=== PATIENT | male | born 1960 | race Caucasian/White ===

== ENCOUNTER 2023-01-26 15:52 | Outpatient (AMB) | payer OTHER, SELFPAY ==
[2023-01-26 15:54] VITALS: BP 108/72; PULSE 81; O2SAT 99; BMI 25.5
--- NOTE | 2023-01-26 15:54 | MHC.PC.OV ---
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 Previous PCP Dr. Walls at [facility], last visit about 1 year ago. Medical history significant nicotine dependence-patient smokes for the past 50 years-he did have low-dose chest CT scan 04/[address]-will order CT scan for next year. Patient also is due for colon cancer screening, will refer. Reports eye and dental exams up-to-date. Would like to hold off on tetanus vaccine. Reports intermittent pains in his both shoulders, left hip, left foot, reports taking ibuprofen with some improvement, would like to hold off on x-rays or PT referral at this time. No shortness of breath or chest pain. [facility] Medical History (Updated 01/26/23 @ 16:54 by EVANGELINA Cee) Meckel diverticulum Surgical History (Updated 01/26/23 @ 16:53 by EVANGELINA Cee) History of colonoscopy H/O fasciotomy H/O: knee surgery H/O adenoidectomy Hx of tonsillectomy History of appendectomy History of cholecystectomy Family History Mother Diabetes Mild dementia Father Esophageal cancer Pneumonitis Social History Housing: House Patient Tobacco Use Status: Current everyday Tobacco user Cigarettes Per Day: 8 service: Yes Current occupational status: employed Cognitive needs: No Hearing needs: No Vision needs: No Questionnaire PHQ-9 Over the last 2 weeks, how often have you been bothered by any of the following problems? 1. Little interest or pleasure in doing things: not at all 2. Feeling down, depressed, or hopeless: not at all 3. Trouble falling or staying asleep, or sleeping too much: not at all 4. Feeling tired or having little energy: not at all 5. Poor appetite or overeating: not at all 6. Feeling bad about yourself - or that you are a failure or have let yourself or your family down: not at all 7. Trouble concentrating on things, such as reading the newspaper or watching television: not at all 8. Moving or speaking so slowly that other people could have noticed. Or the opposite - being so fidgety or restless that you have been moving around a lot more than usual: not at all 9. Thoughts that you would be better off or of hurting yourself in some way: not at all Total score: 0 Depression Screening Interpretation: Negative Depression Screening Done: Yes 23713 - PHQ-9 Billing: Yes Source: Developed by Drs. Cory Gómez, Jessica Putnam, Dieter Alfonso and colleagues, with an educational raya from [employer]. Thrive Questionnaire Date Thrive assessed: 01/26/23 I am a: Patient What is your living situation today?: I have a steady place to live Within the past 12 months, did the food you bought not last and you didn't have the money to get more?: Never true Within the past 12 months, did you worry whether your food would run out before you got money to buy more?: Never true Do you have trouble paying for medicines?: No Do you have trouble getting transportation to medical appointments?: No Do you have trouble paying your heating and electricity bill?: No Do you have trouble taking care of your child, family member or friend?: No Do you have trouble with day-to-day activities such as bathing, preparing meals, shopping, managing finances, etc.?: No Are you currently unemployed and looking for a job?: No Are you interested in more education?: No Currently or been in a relationship where the following occur: no concerns reported AUDIT C Alcohol Use Questionnaire (AUDIT-C) 1. How often do you have a drink containing alcohol?: Never 3. How often do you have six or more drinks on one occasion?: Never Total Score: 0 Score Reviewed/Action Taken: No SABINA-7 AMB Questionnaire SABINA-7 Date SABINA - 7 assessed: 01/26/23 Feeling nervous, anxious, or on edge: 0 = Not at all Not being able to stop or control worryin = Not at all Worrying too much about different things: 0 = Not at all Trouble relaxin = Not at all Being so restless that it is hard to sit still: 0 = Not at all Becoming easily annoyed or irritable: 0 = Not at all Feeling afraid as if something awful might happen: 0 = Not at all Total SABINA-7 score (0-4 normal; 5-9 mild; 10-14 moderate; 15-21 severe): 0 Source: Developed by Drs. Cory Gómez, Jessica Putnam, Dieter Alfonso and colleagues, with an educational raya from [employer]. SABINA-7 Assessment Billing SABINA-7 Assessment Tool: SABINA-7 Assessment 11889 Review of Systems Const Denies body aches, Denies chills, Denies fever(s) and Denies headache(s) Eyes Denies change in vision ENT Denies dizziness, Denies otalgia, Denies headache(s), Denies nasal discharge, Denies sinus pain and Denies sore throat Card Denies chest pain, Denies edema, Denies lightheadedness and Denies dyspnea Resp Denies cough, Denies dyspnea and Denies wheezing GI Denies abdominal pain, Denies constipation, Denies diarrhea, Denies nausea and Denies vomiting Denies dysuria Musc Denies myalgias and Reports arthralgias Neuro Denies dizziness and Denies headache(s) Aller/Immun Denies wheezing Physical exam (Primary Care) Vital Signs: Last Vital Signs Pulse 81 01/26/23 15:54 BP 108/72 01/26/23 15:54 Pulse Ox 99 01/26/23 15:54 Oxygen Delivery Method Room Air 01/26/23 15:54 BMI result Body Mass Index 25.5 Tobacco/Smoking Status: Tobacco use Status Tobacco use date assessed 01/26/23 01/26/23 15:56 Patient Tobacco Use Status Current everyday Tobacco 01/26/23 16:07 PHQ-9: PHQ-9 Score PHQ-9: Total score 0 01/26/23 16:07 Depression Screening Interpretation: Negative Thrive Assessment: Date of Thrive Assessment Date Thrive assessed 01/26/23 01/26/23 15:56 Currently or been in a relationship where the following occur: no concerns reported Const General: cooperative and no acute distress Orientation/consciousness: patient oriented x3 HENMT Head: Yes normocephalic and Yes atraumatic Ears: TM's normal bilaterally Face and sinus: Yes sinuses nontender Mouth: oropharynx normal and moist mucous membranes Throat: Yes posterior oropharynx normal Eyes General: appearance normal, both eyes and all related structures Pupils: Equal, round and reactive pupils present EOM: EOMs intact bilaterally Neck Neck: Yes normal visual inspection, Yes full ROM and Yes no lymphadenopathy Thyroid: Thyroid normal Resp Effort & Inspection: normal respiratory effort and able to speak in complete sentences Auscultation: clear to auscultation bilaterally, no crackles, no rales, no rhonchi and no wheezes Cardio Rate: regular rate Rhythm: regular rhythm Heart sounds: S1 normal heart sound present, S2 normal heart sound present and no murmurs GI Palpation (GI): Soft to palpation, not firm, nontender, no guarding, not rigid and no hepatosplenomegaly Auscultation: normal bowel sounds General: No CVA tenderness Back/Spine/Pelvis Back: No CVA tenderness Skin General skin exam: no rashes or lesions noted Neuro General: patient oriented x3 Cranial nerves: Yes Equal, round and reactive pupils present Gait exam (Neuro): Normal gait present Extrem General: Yes full ROM and No edema Assessment and Plan Assessment & Plan (1) Adult general medical exam: Code(s): Z00.00 - Encounter for general adult medical examination without abnormal findings Plan: Repeat in 1 year (2) Smoker: Code(s): F17.200 - Nicotine dependence, unspecified, uncomplicated Plan: Encouraged smoking cessation Due for low-dose chest CT scan 04/2023 (3) Screening for prostate cancer: Code(s): Z12.5 - Encounter for screening for malignant neoplasm of prostate (4) Screening for colon cancer: Code(s): Z12.11 - Encounter for screening for malignant neoplasm of colon (5) Bilateral shoulder pain: Code(s): M25.511 - Pain in right shoulder; M25.512 - Pain in left shoulder Plan: Patient would like to hold off on x-ray or PT referral Reports taking ibuprofen as needed for pain with some improvement (6) Left hip pain: Code(s): M25.552 - Pain in left hip Plan: Same as above (7) Left foot pain: Code(s): M79.672 - Pain in left foot Plan: Same as above Orders: Orders TSH reflex Free T4 Today Z00.00 - Encounter for general adult medical examination without abnormal findings Lipid Panel Today Z00.00 - Encounter for general adult medical examination without abnormal findings Comprehensive [place]. Panel Fast Today Z00.00 - Encounter for general adult medical examination without abnormal findings Prostate Specific Antigen Today Z12.5 - Encounter for screening for malignant neoplasm of prostate Vitamin D 25-OH Total Today Z00.00 - Encounter for general adult medical examination without abnormal findings Complete Blood Count Auto Diff Today Z00.00 - Encounter for general adult medical examination without abnormal findings Referrals Thoracic Surgery Referral F17.200 - Nicotine dependence, unspecified, uncomplicated Open Access Screening Colonoscopy Referral Z12.11 - Encounter for screening for malignant neoplasm of colon, Z12.12 - Encounter for screening for malignant neoplasm of rectum Coding Level of Care Code New Pt Prev Care 40-64y(22483) Diagnoses Adult general medical exam Z00.00 Smoker F17.200 Screening for prostate cancer Z12.5 Screening for colon cancer Z12.11 Bilateral shoulder pain M25.511; M25.512 Left hip pain M25.552 Left foot pain M79.672 Additional Codes SABINA-7 Assessment Billing - SABINA-7 Assessment Tool: SABINA-7 Assessment 85388 ([id number])
== END 2023-01-26 16:46 | disposition home or self-care (01) ==
PROVIDERS: Visit Provider Nurse Practitioner Family
DX: Z00.00 Encounter for general adult medical examination without abnormal findings (principal); F17.210 Nicotine dependence, cigarettes, uncomplicated; M25.511 Pain in right shoulder; M25.512 Pain in left shoulder; M25.552 Pain in left hip; M79.672 Pain in left foot
CPT/HCPCS: 99386

== ENCOUNTER 2023-02-02 07:19 | Outpatient (REF) | payer OTHER, SELFPAY ==
[2023-02-02 07:28] LABS: MANUAL DIFF FLAG NO
[2023-02-02 08:08] LABS: Basophils Absolute Auto 0.1 X10*3/uL (0.0-0.2); Basophils Percent Auto 0.4 % (0-2); Eosinophils Absolute Auto 0.1 X10*3/uL (0.0-0.4); Eosinophils Percent Auto 1.1 % (0-4); Hematocrit 47.1 % (42.0-52.0); Hemoglobin 15.5 g/dl (14.0-18.0); Imm Gran Abs Auto 0.07 X10*3/uL (0.00-0.03); Imm Gran Pct Auto 0.5 % (0.0-0.4); Lymphocytes Absolute Auto 1.9 X10*3/uL (1.2-4.9); Lymphocytes Percent Auto 14.3 % (20-40); Mean Corpuscular HGB Conc 32.9 g/dl (31.0-36.0); Mean Corpuscular Hemoglobin 29.4 pg (27.0-33.0); Mean Corpuscular Volume 89.2 fL (80.0-98.0); Mean Platelet Volume 10.2 fL (9.4-12.4); Monocytes Absolute Auto 0.7 X10*3/uL (0.1-1.2); Monocytes Percent Auto 5.5 % (2-11); Neutrophils Absolute Auto 10.4 x10*3/uL (2.0-8.3); Neutrophils Percent Auto 78.2 % (45-73); Platelet Count 239 X10*3/uL (160-400); Red Blood Count 5.28 X10*6/uL (4.60-5.80); Red Cell Distribution Width 13.1 % (11.0-16.0); White Blood Count 13.3 X10*3/uL (4.8-10.8)
[2023-02-02 08:55] LABS: Alanine Aminotransferase 11 U/L (0-40); Albumin Level 4.3 g/dL (3.5-5.0); Alkaline Phosphatase 67 U/L (39-117); Anion Gap 14 (12-20); Aspartate Amino Transferase 15 U/L (5-37); Bilirubin Total 0.4 mg/dL (0.0-1.0); Blood Urea Nitrogen 17 mg/dL (9-16); Calcium 9.4 mg/dL (8.4-10.2); Carbon Dioxide 27 mmol/L (22-29); Chloride 105 mmol/L (96-108); Cholesterol 168 mg/dL (<200); Estimated Glomerular Filt Rate 51; Glucose Fasting 88 mg/dL (60-99); HDL Cholesterol 36 mg/dL (>40); LDL Cholesterol Calculated 117 mg/dL (<100); Potassium 4.5 mmol/L (3.3-5.1); Sodium 141 mmol/L (135-145); Total Protein 7.3 g/dL (6.5-8.0); Triglycerides 75 mg/dL (<150)
[2023-02-02 09:01] LABS: TSH reflex Free T4 1.74 uIU/mL (0.32-4.0); Vitamin D 25-OH Total 19.4 ng/mL (>30)
[2023-02-02 09:04] LABS: Prostate Specific Antigen 3.74 ng/mL (<0.05-4.0)
== END 2023-02-02 07:20 | disposition home or self-care (01) ==
LOC: HO.LAB 07:19
PROVIDERS: PCP Nurse Practitioner Family; Visit Provider Nurse Practitioner Family
DX: Z00.00 Encounter for general adult medical examination without abnormal findings (principal); Z12.5 Encounter for screening for malignant neoplasm of prostate
CPT/HCPCS: 36415; 80053; 80061; 82306; 84153; 84443; 85025

== ENCOUNTER 2023-03-02 09:45 | Outpatient (REF) | payer OTHER, SELFPAY ==
[2023-03-02 11:14] LABS: Anion Gap 12 (12-20); Blood Urea Nitrogen 16 mg/dL (9-16); Calcium 9.3 mg/dL (8.4-10.2); Carbon Dioxide 29 mmol/L (22-29); Chloride 105 mmol/L (96-108); Estimated Glomerular Filt Rate 52; Glucose Random 104 mg/dL (60-115); Potassium 4.5 mmol/L (3.3-5.1); Sodium 141 mmol/L (135-145)
== END 2023-03-02 09:46 | disposition home or self-care (01) ==
LOC: HO.LAB 09:45
PROVIDERS: Visit Provider Nurse Practitioner Family
DX: D72.829 Elevated white blood cell count, unspecified (principal); N18.30 Chronic kidney disease, stage 3 unspecified
CPT/HCPCS: 36415; 80048; 85025

== ENCOUNTER 2023-03-08 14:59 | Outpatient (AMB) | payer OTHER, SELFPAY ==
--- NOTE | 2023-03-08 15:01 | AM.OFFVISNUR ---
Intake Intake Visit Reasons: T-Dap Shot Allergies No Known Allergies Allergy (Verified 01/26/23 16:26) Immunizations Boostrix Tdap 2.5 Lf unit-8 mcg-5 Lf/0.5 mL intramuscular syringe Performing Provider: Anil Daniel MD [facility] Administered by: Lena Barrera RN on 03/08/23 15:07 Dose Route Admin Location Dispensed Lot Number Expiration Date NDC Hot Walker 0.5 mL IM Left Deltoid 0.5 mL [id number] 06/22/25 [id number] Transaq VIS Given Date VIS Provided VIS Publication Date 03/08/23 Single Vaccine 20 Eligibility Eligibility Date Funding Source Not [facility] Eligible 03/08/23 Private Coding Assessment & Plan Assessment & Plan Orders: Orders TDaP Immunization Today Z23 - Encounter for immunization
== END 2023-03-08 15:08 | disposition home or self-care (01) ==
PROVIDERS: PCP Nurse Practitioner Family; Visit Provider Nurse Practitioner Family
DX: Z23 Encounter for immunization (principal)
CPT/HCPCS: 90471; 90715

== ENCOUNTER 2023-05-26 09:53 | Outpatient (AMB) | payer OTHER, SELFPAY ==
--- NOTE | 2023-05-26 10:08 | MHC.OFFVIS ---
Intake Intake Visit Reasons: LDCT SD Allergies No Known Allergies Allergy (Verified 01/26/23 16:26) HPI HPI Comments History of Present Illness Details rUiel is a pleasant 62 year old male, current smoker with a 30 PYH. Patient has been smoking since age 13 for 45 years at 1/2 ppd, did smoker 1ppd x 15 years. Denies marijuana use. 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 Admits second hand smoke exposure. Denies known family history of lung cancer. Denies personal history of cancers. Denies recent travel outside the [place]. Denies testing positive for COVID. Admits receiving COVID Vaccine. Denies fever, chills, chest pain, new cough, hemoptysis or unintentional weight loss. Lung Cancer Screening Questionnaire reviewed with patient by provider. Shared Decision Making Completed. Discussed in detail with patient, the risk versus benefit of LDCT screening. Patient in agreement of proceeding with scan. [facility] Medical History (Updated 04/12/23 @ 15:02 by Sherice Camargo NP) Meckel diverticulum Surgical History (Updated 01/26/23 @ 16:53 by EVANGELINA Cee) History of colonoscopy H/O fasciotomy H/O: knee surgery H/O adenoidectomy Hx of tonsillectomy History of appendectomy History of cholecystectomy Family History Mother Diabetes Mild dementia Father Esophageal cancer Pneumonitis Social History (Updated 05/26/23 @ 10:41 by Sherice Camargo NP) Housing: House Patient Tobacco Use Status: Current everyday Tobacco user Cigarettes Per Day: 8 Years Smoked: 45 years, 1ppd x 15yrs, approx 1/2 ppd x 30 yrs service: Yes Current occupational status: employed Cognitive needs: No Hearing needs: No Vision needs: No Assessment & Plan Assessment & Plan (1) Nicotine dependence, cigarettes, uncomplicated: Code(s): F17.210 - Nicotine dependence, cigarettes, uncomplicated Plan Shared decision-making visit completed today in office. This patient meets criteria for LDCT for lung cancer screening purposes and is asymptomatic. Offered smoking cessation. Patient has been scheduled for a low dose chest CT for screening purposes at [facility]. We discussed how the results will be obtained depending on CT findings. RADS 1 and RADS 2 will receive a letter with results and will follow up for annual LDCT. Patient informed they will be contacted at later date to schedule upcoming LDCT scan. RADS 3 and RADS 4 will receive a telephone call, or an office visit after reviewing case at our Lung Cancer Conference to determine when the next LDCT will be scheduled or further interventions that may be needed. Discussed importance of screening program and compliance with yearly LDCT scan as scheduled. Risks, benefits, and alternatives were discussed in detail and patient agrees to proceed. Risks discussed include but are not limited to: radiation exposure and possibility of additional intervention for benign disease. Benefits include detection of lung cancer at an early stage. A copy of today's visit and LDCT results will be sent to patient's PCP. Incidental findings on LDCT are PCP's responsibility. If there are incidental findings, our office will ensure that PCP office is aware of these findings. All questions were answered and patient is in agreement of plan. Coding Level of Care Code Lung Cancer Screening G0296 Diagnoses Nicotine dependence, cigarettes, uncomplicated F17.210
== END 2023-05-26 10:13 | disposition home or self-care (01) ==
PROVIDERS: PCP Nurse Practitioner Family; Referring Provider Nurse Practitioner Family; Visit Provider Nurse Practitioner Family
DX: F17.210 Nicotine dependence, cigarettes, uncomplicated (principal)
CPT/HCPCS: G0296

== ENCOUNTER 2023-05-26 10:15 | Outpatient (REF) | payer OTHER, SELFPAY ==
--- NOTE | ~2023-05-26 | CT_ITS ---
EXAMINATION: CT CHEST SCREENING CLINICAL INFORMATION: Nicotine dependence. Current smoker. One pack per day with 40 pack year history. COMPARISON: None available. TECHNIQUE: Multidetector volumetric CT imaging of the chest is performed without contrast using low dose technique. Additional 2D coronal and sagittal reformatted images and axial 3D maximum intensity projection (MIP) images are generated on the CT workstation. This CT examination was performed using dose optimization techniques as appropriate, variously including the following: *Automated exposure control *Adjustment of mA and/or kV according to patient size (this includes techniques or standardized protocols for targeted exams where dose is matched to indication/reason for exam; i.e. extremities or head) *Use of iterative reconstruction technique DLP: 50 mGy-cm FINDINGS: PULMONARY NODULES: There is a large ground-glass opacity seen in the right lower lobe abutting the heart border measuring 2.7 x 2.3 x 2.1 cm (5:362). An additional more ill-defined area of ground-glass opacity is seen at the left lung base (5:387). There is a punctate calcified granuloma in the right upper lobe (5:174), as well as in the right lower lobe (5:316), and left lower lobe (5:333). LUNGS: Mild emphysematous changes are seen. Mild peribronchial thickening is noted. Scarring/atelectasis is present in the right middle lobe and lingula. MEDIASTINUM: The mediastinum is normal. CORONARY ARTERY CALCIFICATION: Mild. PLEURA: There is no pleural effusion. No pleural mass or thickening. AXILLA: No lymphadenopathy. UPPER ABDOMEN: Cholecystectomy. OSSEOUS STRUCTURES: Unremarkable. CT/CT lung screening IMPRESSION: Small benign-appearing pulmonary nodules. Single 2.7 cm ground-glass opacity right lower lobe. ASSESSMENT: Lung-RADS category 2: Benign RECOMMENDATION: Routine annual low-dose CT screening in 12 months.
== END 2023-05-26 10:16 | disposition home or self-care (01) ==
LOC: HO.CT 10:15
PROVIDERS: PCP Nurse Practitioner Family; Visit Provider Nurse Practitioner Family
DX: Z12.2 Encounter for screening for malignant neoplasm of respiratory organs (principal); F17.210 Nicotine dependence, cigarettes, uncomplicated
CPT/HCPCS: 71271; G0296

== ENCOUNTER 2023-06-14 07:20 | Outpatient (REF) | payer OTHER, SELFPAY ==
[2023-06-15 12:48] LABS: Immunoglobulin A 136 mg/dL (70-320)
[2023-06-15 13:38] LABS: Gliadin Deamidated IgA Ab 2.9 U/mL; Gliadin Deamidated IgG Ab <1.0 U/mL; Transglutaminase Ab IgG <1.0 U/mL; Transglutaminase IgA <1.0 U/mL
[2023-06-17 12:59] LABS: Endomysial IgA Antibody Negative (Negative)
== END 2023-06-14 07:21 | disposition home or self-care (01) ==
LOC: HO.LAB 07:20
PROVIDERS: Visit Provider Internal Medicine
DX: R19.7 Diarrhea, unspecified (principal)
CPT/HCPCS: 36415; 82784; 86231; 86258; 86364

== ENCOUNTER 2023-09-08 07:43 | Day surgery (SDC) | payer OTHER, SELFPAY ==
[2023-09-08 08:30] VITALS: BP 130/92; PULSE 79; RESP 18; TEMP 36.1; O2SAT 96; BMI 25.8
--- NOTE | 2023-09-08 08:37 | P.CONAN_ITS ---
HPI - Anesthesia Eval Consult details Narrative: 62 yo male patient for Colonoscopy PMFSH Active Problems Active Problems: All Active Problems (Updated 09/08/23 @ 08:31 by Anika Casey MD) Nicotine dependence, cigarettes, uncomplicated (Acute) CKD (chronic kidney disease) stage 3, GFR 30-59 ml/min (Acute). Last labs 02/2023 wnl Elevated WBC count (Acute) Low vitamin D level (Acute) Left foot pain (Acute) Left hip pain (Acute) Bilateral shoulder pain (Acute) Screening for colon cancer (Acute) Screening for prostate cancer (Acute) Smoker (Acute). Last cigarette a few hours ago Adult general medical exam (Acute) Past Medical History Medical History Meckel diverticulum Family History Family History Mother Diabetes Mild dementia Father Esophageal cancer Pneumonitis Family history of problems with anesthesia: No Surgical History Surgical History (Updated 01/26/23 @ 16:53 by EVANGELINA Cee) History of colonoscopy H/O fasciotomy H/O: knee surgery H/O adenoidectomy Hx of tonsillectomy History of appendectomy History of cholecystectomy History of Problems with Anesthesia: No Social History Social History (Updated 05/26/23 @ 10:41 by Sherice Camargo NP) Housing: House Patient Tobacco Use Status: Current everyday Tobacco user Tobacco use type: Cigarette Cigarette Packs Per Day: 0.5 Cigarettes Per Day: 10.0 Years Smoked: 46 years, 1ppd x 15yrs, approx 1/2 ppd x 30 yrs Date Education Initiated: 09/08/23 Use of substances other than those prescribed or required for medical reasons: No Are you DNR?: No Advance Directives: No Advance Directives Information Provided: Yes service: Yes Current occupational status: employed Cognitive needs: No Hearing needs: No Vision needs: No Meds Allergies Allergy/AdvReac Type Severity Reaction Status Date / Time No Known Allergies Allergy Verified 09/08/23 08:28 Active Medications: Current Medications Sodium Biphosphate/Sodium Phosphate (Sodium Phosphate,[place]-Dibasic 133 Ml Enema) 133 ml UT ONCE PRN PRN Reason: Poor Colonoscopy Prep Results Exam Height,Weight and Vital Signs: Height 5 ft 10 in Weight 81.647 kg Last Vital Signs Temp 97.0 F 09/08/23 08:30 Pulse 79 09/08/23 08:30 Resp 18 09/08/23 08:30 BP 130/92 H 09/08/23 08:30 Pulse Ox 96 09/08/23 08:30 O2 Del Method Room Air 09/08/23 08:30 Airway Mallampati Class: II TM Dist: >3cm Neck ROM: Full Partial: Upper Loose/Missing/Broken Teeth: Yes (Denies broken or loose teeth) Heart: RRR Lungs: CTAB Assessment and Plan Assessment Anesthesia Assessment: Anesthesia Plan Discussed and Chart Reviewed Final Anesthetic Review Family History of Problems with Anesthesia: No History of Problems with Anesthesia: No NPO: Yes ASA Class: II Final Preanesthetic Review: No Changes in Pt Med Stat, Meds/Allgs Chart Reviewed, Consent Obtained/Reviewed and Anes Risks/Benef Reviewed Patient Risk: Intermediate Procedure Risk: Low Assessment/Block/Sedation in SS: Assess/Block/Sedation-SS Anesthetic Plan Anesthetic Plan: TIVA Disposition: Standard PACU
[2023-09-08] MEDS: Lactated Ringers 1,000 ML 100 ML IVCONT (09:17)
--- NOTE | 2023-09-08 09:48 | PC.NURSE ---
24hr update documented on paper.
[2023-09-08 10:38] VITALS: BP 119/64; PULSE 67; RESP 16; TEMP 36.5; O2SAT 97
--- NOTE | 2023-09-08 10:39 | PM.OP ---
Brief Operative Note Date of Service: 09/08/23 Pre-op diagnosis: Screening, Diarrhea Post-op diagnosis: other (Colon polyps) Procedure: Colonoscopy to the cecum and TI with cold snare polypectomy x 2, and biopsies Surgeon: Cory Chen MD Anesthesia: MAC Was an Red Mud Thickener Operator used for this Procedure?: No Estimated blood loss (mL): 2.0 Pathology: other (A. Ascending colon B. Polyp on ICV C. Transverse colon polyp D. Descending colon) Condition: stable Disposition: PACU
[2023-09-08 10:43] VITALS: BP 98/51; PULSE 59; RESP 16; O2SAT 97
[2023-09-08 10:48] VITALS: BP 105/55; PULSE 59; RESP 16; O2SAT 97
[2023-09-08 10:53] VITALS: BP 99/61; PULSE 61; RESP 16; TEMP 36.2; O2SAT 98
[2023-09-08 10:59] VITALS: BP 122/77; PULSE 58; RESP 16; TEMP 36.2; O2SAT 98
--- NOTE | 2023-09-08 12:16 | OP_ITS ---
DATE OF SERVICE: 09/08/2023 SURGEON: Cory Chen MD INDICATIONS: The patient presents for evaluation of colorectal cancer screening and intermittent diarrhea. Full consent has been obtained from him for this, including risks of bleeding and perforation. PREOPERATIVE DIAGNOSIS: POSTOPERATIVE DIAGNOSIS: PROCEDURE PERFORMED: Colonoscopy to the cecum and terminal ileum with cold snare polypectomy x2, and biopsies. ESTIMATED BLOOD LOSS: COMPLICATIONS: ANESTHESIA: Monitored anesthesia care. ASSISTANTS: SPECIMENS: PREOPERATIVE DIAGNOSES: Colorectal cancer screening and intermittent diarrhea. POSTOPERATIVE DIAGNOSES: Colorectal cancer screening, intermittent diarrhea, colon polyps, rule out microscopic colitis, sigmoid diverticulosis, and internal hemorrhoids. DESCRIPTION OF PROCEDURE: The patient was placed in the left lateral decubitus position. The digital rectal exam revealed no abnormalities. The Olympus video pediatric colonoscope was then entered into the rectum and advanced easily to the cecum. Once in the cecum, I did identify normal-appearing cecal pouch. The terminal ileum was cannulated and appeared normal. The scope was withdrawn back in the colon. The entire cecum including the appendiceal orifice appeared normal. On the colonic side of the ileocecal valve, was an approximately 6 mm polyp, which was removed by cold snare polypectomy and recovered by suction. The polypectomy site appeared clean, without any sign of residual polyp nor bleeding. The scope was slowly withdrawn assessing all mucosal surfaces carefully. Preparation was excellent. In the transverse colon, was an approximately 6 mm polyp, which was removed by cold snare polypectomy and recovered by suction. The polypectomy site appeared clean, without any sign of residual polyp nor bleeding. I did not visualize any other polyps, colitis, nor angiodysplasias. Random biopsies were obtained in the ascending and descending colon. There was a mild amount of sigmoid diverticulosis. In the rectum, scope was retroflexed, visualizing internal hemorrhoids, but no other pathology. The rectal mucosa appeared normal. The scope was straightened and withdrawn from the patient. He tolerated the procedure well and was returned to the recovery area in stable condition. IMPRESSION: 1. Colon polyps. 2. Rule out microscopic colitis. 3. Diverticulosis. 4. Internal hemorrhoids. PLAN: The results of the pathology will be checked. I would recommend a repeat colonoscopy in 5 years if these are tubular adenomas. He was advised not to use any aspirin and NSAIDs for 1 week. Laboratories for celiac disease were negative. He will see me on a p.r.n. basis, but was advised to call if his episodes of diarrhea become more frequent. MD CINDY Hsu/TRACE / [phone]
== END 2023-09-08 12:25 | disposition home or self-care (01) ==
PROVIDERS: PCP Nurse Practitioner Family; Visit Provider Internal Medicine
PROC: 0DJD8ZZ Inspection of Lower Intestinal Tract, Via Natural or Artificial Opening Endoscopic (ICD-10-PCS; CPT 45378; principal; 2023-09-08 09:30)
DX: Z12.11 Encounter for screening for malignant neoplasm of colon (principal); D12.0 Benign neoplasm of cecum; D12.3 Benign neoplasm of transverse colon; K57.30 Diverticulosis of large intestine without perforation or abscess without bleeding; K64.8 Other hemorrhoids; N18.30 Chronic kidney disease, stage 3 unspecified; F17.210 Nicotine dependence, cigarettes, uncomplicated
CPT/HCPCS: 45385; 45380; 88305; J2704

== ENCOUNTER 2024-01-30 15:04 | Outpatient (AMB) | payer OTHER, SELFPAY ==
[2024-01-30 15:05] VITALS: BP 124/82; PULSE 81; O2SAT 99; BMI 27.0
--- NOTE | 2024-01-30 15:05 | A.OFFPC_ITS ---
Vital Signs 01/30/24 15:05 Height 5 ft 10 in Weight 188 lb BMI 27.0 BP 124/82 Blood Pressure Location Lt brachial Position Sitting Pulse 81 Pulse Source Pulse Oximeter Pulse Oximetry (%) 99 Oxygen Delivery Method Room Air Intake Visit Reasons: ANNUAL Product Support Technician Required: No Accompanied by: Self / Same As Patient Allergies No Known Allergies Allergy (Verified 01/30/24 15:16) Medication List - Last Reconciled 01/30/24 by Houston Sexton MD cholecalciferol (vitamin D3) 50 mcg PO DAILY Tobacco use date assessed: 01/30/24 Dental Screening Dental Screen Date: 01/30/24 Did you have a dental visit in the last 12 months?: Yes Did you have a dental problem in the last 6 months where you did not have access to dental care?: No Was dental information given to patient?: Patient has dentist HPI ANNUAL HPI Details Patient comes in today for his annual physical examination - he is transferring over from Selene Alvarado, who is no longer with the practice Patient states that he feels okay Has his usual joint aches and pains, particularly involving both shoulders, left hip and left foot - states that he gets them on and off Reports taking Ibuprofen as needed with some improvement of his symptoms He has reportedly declined offer to send him for imaging studies and referral to physical therapy in the past He denies any headaches or dizziness Denies any chest pains, no SOB No nausea/vomiting, no abdominal pain No change in bowel habits noted He denies any acute urinary symptoms He had his repeat colonoscopy done with Dr. Chen back on 09/08/2023 - he had a couple of polyps removed that came out as tubular adenomas and he has been recommended to get repeat colonoscopy done in 5 years (2028) [facility] Medical History (Updated 01/30/24 @ 18:54 by Houston Sexton MD) Overweight (BMI 25.0-29.9) Chronic kidney disease, stage III (moderate) Vitamin D deficiency Meckel diverticulum Surgical History History of colonoscopy H/O fasciotomy H/O: knee surgery H/O adenoidectomy Hx of tonsillectomy History of appendectomy History of cholecystectomy Family History Mother Diabetes Mild dementia Father Esophageal cancer Pneumonitis Social History Housing: House Patient Tobacco Use Status: Current everyday Tobacco user Tobacco use type: Cigarette Cigarette Packs Per Day: 0.5 Cigarettes Per Day: 10.0 Years Smoked: 45 years, 1ppd x 15yrs, approx 1/2 ppd x 30 yrs service: Yes Current occupational status: employed Cognitive needs: No Hearing needs: No Vision needs: No Questionnaire PHQ-9 Over the last 2 weeks, how often have you been bothered by any of the following problems? 1. Little interest or pleasure in doing things: not at all 2. Feeling down, depressed, or hopeless: not at all 3. Trouble falling or staying asleep, or sleeping too much: not at all 4. Feeling tired or having little energy: not at all 5. Poor appetite or overeating: not at all 6. Feeling bad about yourself - or that you are a failure or have let yourself or your family down: not at all 7. Trouble concentrating on things, such as reading the newspaper or watching television: not at all 8. Moving or speaking so slowly that other people could have noticed. Or the opposite - being so fidgety or restless that you have been moving around a lot more than usual: not at all 9. Thoughts that you would be better off or of hurting yourself in some way: not at all Total score: 0 Depression Screening Interpretation: Negative Depression Screening Done: Yes 82977 - PHQ-9 Billing: Yes Source: Developed by Drs. Cory Gómez, Jessica Putnam, Dieter Alfonso and colleagues, with an educational raya from [employer]. Thrive Questionnaire Date Thrive assessed: 01/30/24 I am a: Patient What is your living situation today?: I have a steady place to live Within the past 12 months, did the food you bought not last and you didn't have the money to get more?: Never true Within the past 12 months, did you worry whether your food would run out before you got money to buy more?: Never true Do you have trouble paying for medicines?: No Do you have trouble getting transportation to medical appointments?: No Do you have trouble paying your heating and electricity bill?: No Do you have trouble taking care of your child, family member or friend?: No Do you have trouble with day-to-day activities such as bathing, preparing meals, shopping, managing finances, etc.?: No Are you currently unemployed and looking for a job?: No Are you interested in more education?: No Please select the resources that you would like help with: None Currently or been in a relationship where the following occur: No concerns reported THRIVE Score: 0 AUDIT C Alcohol Use Questionnaire (AUDIT-C) 1. How often do you have a drink containing alcohol?: Never Total Score: 0 Score Reviewed/Action Taken: Yes SABINA-7 AMB Questionnaire SABINA-7 Date SABINA - 7 assessed: 01/30/24 Feeling nervous, anxious, or on edge: 0 = Not at all Not being able to stop or control worryin = Not at all Worrying too much about different things: 0 = Not at all Trouble relaxin = Not at all Being so restless that it is hard to sit still: 0 = Not at all Becoming easily annoyed or irritable: 0 = Not at all Feeling afraid as if something awful might happen: 0 = Not at all Total SABINA-7 score (0-4 normal; 5-9 mild; 10-14 moderate; 15-21 severe): 0 Source: Developed by Drs. Cory Gómez, Jessica Putnam, Dieter Alfonso and colleagues, with an educational raya from [employer]. Review of Systems Const Denies chills, Denies fatigue, Denies fever(s), Denies headache(s), Denies malaise and Denies weakness Eyes Denies blurry vision, Denies change in vision, Denies irritation and Denies itchy eyes ENT Denies dysphagia, Denies dizziness, Denies otalgia, Denies headache(s), Denies nasal congestion, Denies neck pain, Denies odynophagia and Denies sore throat Card Denies chest pain, Denies rapid heart rate, Denies irregular heart rhythm, Denies palpitations and Denies dyspnea Resp Denies chest congestion, Denies cough, Denies dyspnea and Denies wheezing GI Denies abdominal pain, Denies bloating, Denies constipation, Denies dysphagia, Denies heartburn, Denies diarrhea, Denies nausea, Denies odynophagia and Denies vomiting Denies hematuria, Denies difficulty urinating, Denies dysuria, Denies urinary frequency and Denies urinary urgency Musc Denies back pain, Reports arthralgias (on and off, in the left hip and in both shoulders), Denies joint swelling, Denies muscle weakness and Denies neck pain Skin/Breast Denies lesions, Denies rash and Denies unusual bruising Neuro Denies dizziness, Denies headache(s), Denies paresthesias and Denies weakness Endo Denies fatigue and Denies palpitations Aller/Immun Denies itchy eyes and Denies wheezing Physical exam (Primary Care) Vital Signs: Last Vital Signs Pulse 81 01/30/24 15:05 BP 124/82 01/30/24 15:05 Pulse Ox 99 01/30/24 15:05 Oxygen Delivery Method Room Air 01/30/24 15:05 BMI result Body Mass Index 27.0 Tobacco/Smoking Status: Tobacco use Status Tobacco use date assessed 01/30/24 01/30/24 15:11 Patient Tobacco Use Status Current everyday Tobacco 01/30/24 15:11 Tobacco use type Cigarette 01/30/24 15:11 PHQ-9: PHQ-9 Score PHQ-9: Total score 0 01/30/24 15:19 Depression Screening Interpretation: Negative Thrive Assessment: Date of Thrive Assessment Date Thrive assessed 01/30/24 01/30/24 15:11 Currently or been in a relationship where the following occur: No concerns reported Const General: no acute distress, alert and awake Orientation/consciousness: patient oriented x3 HENMT Head: Yes normocephalic and Yes atraumatic Ears: external ears normal, TM's normal bilaterally and EAC's normal General nose exam: No nasal discharge present Face and sinus: Yes normal facial exam and Yes sinuses nontender Teeth and gingiva: dentition normal Throat: Yes posterior oropharynx normal and Yes tonsils normal (no TP congestion) Eyes Eyelids: Yes eyelids normal Conjunctivae: conjunctivae normal Pupils: Equal, round and reactive pupils present EOM: EOMs intact bilaterally Neck Neck: Yes no lymphadenopathy and Yes supple Thyroid: Thyroid normal Resp Auscultation: clear to auscultation bilaterally, no rales and no wheezes Cardio Rate: regular rate Rhythm: regular rhythm Heart sounds: no murmurs GI Palpation (GI): Soft to palpation, nontender and No hepatosplenomegaly present Auscultation: normal bowel sounds General: Yes no CVA tenderness Back/Spine/Pelvis Back: no CVA tenderness Thoracic/Lumbar Spine: thoracic and lumbar spine normal to inspection Skin Lesions: no lesions Rashes: no rashes Neuro General: patient oriented x3, moves all extremities, no focal motor deficits and CN's II-XI intact bilaterally Cranial nerves: Yes Equal, round and reactive pupils present Cognition (Neuro): normal cognition Gait exam (Neuro): Normal gait present Extrem General: Yes no clubbing, cyanosis or edema Coding Level of Care Code Est Pt Prev Care 40-64y(41971) Diagnoses Annual physical exam Z00.00 Vitamin D deficiency E55.9 Stage 3a chronic kidney disease N18.31 Chronic kidney disease stage 3 subtype: stage 3a (GFR 45-59) Elevated PSA R97.20 Left hip pain M25.552 Bilateral shoulder pain, unspecified chronicity M25.511; M25.512 Chronicity: unspecified Ex-smoker Z87.891 Overweight (BMI 25.0-29.9) E66.3 Additional Codes PHQ-9 - 29852 - PHQ-9 Billing: Yes ([id number]) Assessment & Plan Assessment & Plan (1) Annual physical exam: Code(s): Z00.00 - Encounter for general adult medical examination without abnormal findings Category: Medical Plan: Check labs He is up-to-date with his colon cancer screening - just had his colonoscopy done in August 2023 and will need repeat colonoscopy in 5 years (2028) (2) Vitamin D deficiency: Code(s): E55.9 - Vitamin D deficiency, unspecified Category: Medical Plan: Continue Vitamin D3 2000 units QD Will recheck his Vitamin D level for follow up (3) Chronic kidney disease, stage III (moderate): Code(s): N18.30 - Chronic kidney disease, stage 3 unspecified Category: Medical Qualifiers: Chronic kidney disease stage 3 subtype: stage 3a (GFR 45-59) Qualified Code(s): N18.31 - Chronic kidney disease, stage 3a Plan: His previous labs have demonstrated a slightly elevated serum creatinine level and slightly diminished GFR - his recent numbers were consistent with what one would normally see in an individual with stage 3a CKD He denies taking any Ibuprofen or NSAIDs for his joint pains - states that he is not taking any meds at all other than his Vitamin D supplement Will have him recheck his labs and renal function for follow up and if his numbers are similar or have progressed further from before, will then consider sending him for renal US for further evaluation He will likely also need to see nephrology for further evaluation, depending on how his numbers come out on his labs (4) Elevated PSA: Code(s): R97.20 - Elevated prostate specific antigen [PSA] Category: Medical Plan: His PSA level was at 3.74 ng/ml when last checked a year ago - advised that although this is technically still within the normal limits, it is higher than what we normally see and especially in someone who has no significant urologic symptoms, will need close monitoring Will have him recheck his PSA for follow up and if his numbers have gone up further, he will need to see urology for further evaluation (5) Left hip pain: Code(s): M25.552 - Pain in left hip Category: Medical Plan: This is likely due to either bursitis or arthritis of the hip joint Patient has declined going for imaging studies and referral to physical therapy in the past We have advised him that he can call for x-ray orders and referral to PT at any time when he feels he wants to get this finally checked out further or if his symptoms are progressing (6) Bilateral shoulder pain: Code(s): M25.511 - Pain in right shoulder; M25.512 - Pain in left shoulder Category: Medical Qualifiers: Chronicity: unspecified Qualified Code(s): M25.511 - Pain in right shoulder; M25.512 - Pain in left shoulder Plan: Reports that this has been occurring on and off for a while now Patient has also declined going for imaging studies and referral to physical therapy in the past and we have advised him that he can call for x-ray orders and/or referral to PT at any time if he feels that his symptoms are progressing (7) Ex-smoker: Code(s): Z87.891 - Personal history of nicotine dependence Category: Social Hx Plan: Patient states that he finally quit smoking last month (December 2023) He did have low-dose chest CT done last year on 04/2022, that came out negative (8) Overweight (BMI 25.0-29.9): Code(s): E66.3 - Overweight Category: Medical Plan: Reinforced diet/exercise as tolerated/lose weight Plan To return in 1 year for his next annual physical examination Orders: Orders TSH reflex Free T4 Today E78.00 - Pure hypercholesterolemia, unspecified, Z00.00 - Encounter for general adult medical examination without abnormal findings Complete Blood Count Auto Diff Today D64.9 - Anemia, unspecified, Z00.00 - Encounter for general adult medical examination without abnormal findings Comprehensive Parrott. Panel Fast Today E78.00 - Pure hypercholesterolemia, unspecified, Z00.00 - Encounter for general adult medical examination without abnormal findings Lipid Panel Today E78.00 - Pure hypercholesterolemia, unspecified, Z00.00 - Encounter for general adult medical examination without abnormal findings UA CC w/rflx Micro + Cult Today R30.0 - Dysuria, Z00.00 - Encounter for general adult medical examination without abnormal findings Prostate Specific Antigen Today N40.0 - Benign prostatic hyperplasia without lower urinary tract symptoms, Z00.00 - Encounter for general adult medical examination without abnormal findings Vitamin D 25-OH Total Today E55.9 - Vitamin D deficiency, unspecified, Z00.00 - Encounter for general adult medical examination without abnormal findings Vitamin B12 and Folate Today E53.8 - Deficiency of other specified B group vi tamins, Z00.00 - Encounter for general adult medical examination without abnormal findings
== END 2024-01-30 16:06 | disposition home or self-care (01) ==
PROVIDERS: PCP Nurse Practitioner Family; Visit Provider Internal Medicine
DX: Z00.00 Encounter for general adult medical examination without abnormal findings (principal); E55.9 Vitamin D deficiency, unspecified; N18.31 Chronic kidney disease, stage 3a; R97.20 Elevated prostate specific antigen [PSA]; M25.552 Pain in left hip; M25.511 Pain in right shoulder; M25.512 Pain in left shoulder; Z87.891 Personal history of nicotine dependence; E66.3 Overweight

== ENCOUNTER → 2024-01-30 15:04 | Outpatient (BNVA) | payer OTHER, SELFPAY | PROVIDERS: PCP Nurse Practitioner Family; Visit Provider Internal Medicine | DX: Z00.00 Encounter for general adult medical examination without abnormal findings (principal); E55.9 Vitamin D deficiency, unspecified; N18.31 Chronic kidney disease, stage 3a; R97.20 Elevated prostate specific antigen [PSA]; M25.552 Pain in left hip; M25.511 Pain in right shoulder; M25.512 Pain in left shoulder; E66.3 Overweight; Z79.899 Other long term (current) drug therapy; Z87.891 Personal history of nicotine dependence | CPT/HCPCS: 96127 ==

== ENCOUNTER 2024-02-05 06:18 | Outpatient (REF) | payer OTHER, SELFPAY ==
[2024-02-05 06:28] LABS: MANUAL DIFF FLAG NO
[2024-02-05 07:15] LABS: Basophils Percent Auto 0.5 % (0-2); Eosinophils Absolute Auto 0.2 X10*3/uL (0.0-0.4); Eosinophils Percent Auto 2.5 % (0-4); Hematocrit 43.6 % (42.0-52.0); Hemoglobin 14.7 g/dl (14.0-18.0); Imm Gran Abs Auto 0.01 X10*3/uL (0.00-0.03); Imm Gran Pct Auto 0.1 % (0.0-0.4); Lymphocytes Absolute Auto 1.9 X10*3/uL (1.2-4.9); Mean Corpuscular HGB Conc 33.7 g/dl (31.0-36.0); Mean Corpuscular Hemoglobin 29.6 pg (27.0-33.0); Mean Corpuscular Volume 87.9 fL (80.0-98.0); Mean Platelet Volume 10.1 fL (9.4-12.4); Monocytes Absolute Auto 0.6 X10*3/uL (0.1-1.2); Monocytes Percent Auto 7.4 % (2-11); Neutrophils Absolute Auto 4.8 x10*3/uL (2.0-8.3); Neutrophils Percent Auto 64.5 % (45-73); Platelet Count 200 X10*3/uL (160-400); Red Blood Count 4.96 X10*6/uL (4.60-5.80); Red Cell Distribution Width 12.6 % (11.0-16.0); White Blood Count 7.5 X10*3/uL (4.8-10.8)
[2024-02-05 07:45] LABS: Alanine Aminotransferase 18 U/L (0-40); Albumin Level 4.1 g/dL (3.5-5.0); Alkaline Phosphatase 48 U/L (39-117); Anion Gap 11 (12-20); Aspartate Amino Transferase 25 U/L (5-37); Bilirubin Total 0.6 mg/dL (0.0-1.0); Blood Urea Nitrogen 23 mg/dL (9-16); Calcium 9.6 mg/dL (8.4-10.2); Carbon Dioxide 27 mmol/L (22-29); Chloride 107 mmol/L (96-108); Cholesterol 157 mg/dL (<200); Estimated Glomerular Filt Rate 49; Glucose Fasting 82 mg/dL (60-99); HDL Cholesterol 41 mg/dL (>40); LDL Cholesterol Calculated 98 mg/dL (<100); Potassium 4.1 mmol/L (3.3-5.1); Sodium 141 mmol/L (135-145); Total Protein 6.7 g/dL (6.5-8.0); Triglycerides 92 mg/dL (<150)
[2024-02-05 08:01] LABS: TSH reflex Free T4 2.28 uIU/mL (0.32-4.0); Vitamin D 25-OH Total 26.8 ng/mL (>30)
[2024-02-05 08:06] LABS: Appearance Urine Clear; Color Urine Yellow; Glucose Urine UA Negative (Negative); Leukocyte Esterase Urine Negative (Negative); Nitrite Urine Negative (Negative); PH 5.5 (5.0-9.0); UMIC TRIGGER UACC YES; Urine Blood Large (3+) (Negative); Urine Ketones Negative (Negative); Urine Protein 30 (1+) mg/dL (Neg-Trace)
[2024-02-05 08:11] LABS: Bacteria Urine None Seen (None Seen); Hyaline Casts Urine 0-2 /LPF (0-2); Squamous Epithelial Cell Urine 0-2 /HPF (0-2); WBC Urine 0-5 /HPF (0-5)
[2024-02-05 08:13] LABS: Folate 8.6 ng/mL (> or = 4.0); Prostate Specific Antigen 3.56 ng/mL (<0.05-4.0); Vitamin B12 413 pg/mL (200-900)
== END 2024-02-05 06:19 | disposition home or self-care (01) ==
LOC: HO.LAB 06:18
PROVIDERS: PCP Internal Medicine; Visit Provider Internal Medicine
DX: Z00.00 Encounter for general adult medical examination without abnormal findings (principal); Z12.5 Encounter for screening for malignant neoplasm of prostate; E78.00 Pure hypercholesterolemia, unspecified; E55.9 Vitamin D deficiency, unspecified; N40.0 Benign prostatic hyperplasia without lower urinary tract symptoms; E53.8 Deficiency of other specified B group vitamins; D64.9 Anemia, unspecified
CPT/HCPCS: 36415; 80053; 80061; 81001; 81003; 82306; 82607; 82746; 84153; 84443; 85025

== ENCOUNTER 2024-02-29 07:38 | Outpatient (REF) | payer OTHER, SELFPAY ==
--- NOTE | ~2024-02-29 | XR_ITS ---
CLINICAL HISTORY: M25.552 - Pain in left hip 3 view, pelvis and left hip Comparison: None Findings: The bones are intact. Mild degenerative changes with joint space narrowing at the femoral-acetabular joints bilaterally. The soft tissues are unremarkable. IMPRESSION: No acute findings. Mild degenerative changes. This document has been electronically signed by: Dereck Edouard MD on 02/29/2024 11:44:02
--- NOTE | ~2024-02-29 | XR_ITS ---
CLINICAL HISTORY: M25.512 - Pain in left shoulder 4 view left shoulder Comparison: None Findings: No fractures or dislocations. No significant arthritic change. No erosions. No radiopaque foreign body. IMPRESSION: 1. No acute findings This document has been electronically signed by: Dereck Edouard MD on 02/29/2024 11:40:41
--- NOTE | ~2024-02-29 | XR_ITS ---
CLINICAL HISTORY: M25.511 - Pain in right shoulder 4 view right shoulder Comparison: None Findings: Bones intact. No dislocations. Mild to moderate joint space narrowing of the right glenohumeral and acromioclavicular joints. No erosions. No radiopaque foreign body. IMPRESSION: 1. No acute findings 2. [id number] degenerative change of the glenohumeral joint. This document has been electronically signed by: Dereck Edouard MD on 02/29/2024 11:41:50
== END 2024-02-29 07:39 | disposition home or self-care (01) ==
LOC: HO.XRAY 07:38
PROVIDERS: PCP Internal Medicine; Visit Provider Internal Medicine
DX: M25.552 Pain in left hip (principal); M25.511 Pain in right shoulder
CPT/HCPCS: 73030; 73502

== ENCOUNTER → 2024-02-29 07:42 | Outpatient (BNV) | payer OTHER, SELFPAY | PROVIDERS: PCP Internal Medicine; Visit Provider Radiology Vascular & Interventional Radiology | DX: M25.552 Pain in left hip (principal); M25.511 Pain in right shoulder; M25.512 Pain in left shoulder | CPT/HCPCS: 73030; 73502 ==

== ENCOUNTER 2024-04-23 14:36 | Outpatient (REF) | payer OTHER, SELFPAY ==
[2024-04-23 16:02] LABS: Urine Cytology See Pathology rpt
== END 2024-04-23 14:37 | disposition home or self-care (01) ==
LOC: HO.LNP 14:36
PROVIDERS: PCP Internal Medicine; Visit Provider Nurse Practitioner Family
DX: R82.89 Other abnormal findings on cytological and histological examination of urine (principal)
CPT/HCPCS: 81003; 88112

== ENCOUNTER 2024-04-23 14:36 | Outpatient (AMB) | payer OTHER, SELFPAY ==
--- NOTE | 2024-04-23 14:50 | A.OFFVIS_ITS ---
Intake Visit Reasons: urine cytology revealed (+) atypical cells Intake Note: New Patient presents for initial visit for abnormal cytology Urology Medications: none Blood Thinner: none House Officer Required: No Accompanied by: Self / Same As Patient Allergies No Known Allergies Allergy (Verified 04/23/24 15:01) HPI Comments Details: Uriel is a very pleasant 63-year-old male patient of Dr. Sexton. He has a past medical history of overweight, chronic kidney disease stage 3, vitamin-D deficiency, and Meckel diverticulum. He presents to the office today as a new patient for microscopic hematuria in the setting of nicotine dependence. In discussion with the patient today he reports having followed up with his PCP for his annual visit at which time urinalysis noted microscopic hematuria and unofficial cytology was performed and noted to be abnormal. When asked he does report a longstanding history of nicotine dependence for 45 years however quit a little over a year ago. He reports when he was smoking smoked approximately half a pack or less of cigarettes per day. In office urinalysis results reviewed with the patient today 3+ microscopic hematuria noted. We discussed at length potential causes of microscopic hematuria as well as further workup to include imaging as well as in office cystoscopy. When asked he denies any urological issues. He denies urinary urgency, urinary frequency, incontinence, nocturia, hematuria, dysuria, foul smelling urine, changes to urinary stream, flank pain, fever, and or chills. He is happy with his current voiding parameters. I discussed reasons for blood in the urine may include but are not limited to kidney stones, cancer in the urinary tract, BPH, kidney stone disease or inflammatory conditions of the urinary tract. I have discussed workup to include cystoscopy evaluation. He otherwise offers no other issues or concerns at this time. [facility] Medical History Overweight (BMI 25.0-29.9) Chronic kidney disease, stage III (moderate) Vitamin D deficiency Meckel diverticulum Surgical History History of colonoscopy H/O fasciotomy H/O: knee surgery H/O adenoidectomy Hx of tonsillectomy History of appendectomy History of cholecystectomy Family History Mother Diabetes Mild dementia Father Esophageal cancer Pneumonitis Social History Housing: House Patient Tobacco Use Status: Current everyday Tobacco user Tobacco use type: Cigarette Cigarette Packs Per Day: 0.5 Cigarettes Per Day: 10.0 Years Smoked: 45 years, 1ppd x 15yrs, approx 1/2 ppd x 30 yrs service: Yes Current occupational status: employed Cognitive needs: No Hearing needs: No Vision needs: No Review of Systems Const All systems reviewed & are unremarkable except as noted in HPI and below Physical Exam Const General: cooperative, healthy appearing, comfortable, no acute distress, well developed, alert and awake Orientation/consciousness: patient oriented x3 Limitations: no limitations HEENT Head: Yes normal to inspection, Yes normocephalic and Yes atraumatic Ears: hearing grossly normal bilaterally Eyes General: appearance normal, both eyes and all related structures Neck Neck: Yes normal visual inspection and Yes trachea midline Chest Chest palpation & inspection: normal inspection of the chest Resp Effort & Inspection: normal respiratory effort and able to speak in complete sentences Cardio Rate: regular rate GI Inspection: Yes normal to inspection General: Yes no CVA tenderness Back/Spine/Pelvis Back: no CVA tenderness Skin General skin exam: no rashes or lesions noted Neuro General: patient oriented x3 Extrem General: Yes normal to inspection Psych Appearance: grossly normal and well kempt Mental Status: mental status grossly normal Speech and movement: Normal speech and movement present and Clear speech present Affect: normal affect Attitude: cooperative Thought process: Normal thought process present Thought content: Normal thought content present Insight: Fair insight present (Psych) Judgement: Fair judgement present (Psych) Results AMB Urinalysis, Automated UA Leukoctes 0 Valentín/uL Last Edit by Jovana Jang on 04/23/24 15:13 UA Nitrite Last Edit by Jovana Jang on 04/23/24 15:13 UA Urobilinogen 0.2 mg/dL Last Edit by Jovana aJng on 04/23/24 15:13 UA Protein 15 mg/dL Last Edit by Jovana Jang on 04/23/24 15:13 UA pH 5.5 Last Edit by Jovana Jang on 04/23/24 15:13 UA Blood 200 Rei/uL Last Edit by Jovana Jang on 04/23/24 15:13 UA Specific [place] 1.020 Last Edit by Jovana Jang on 04/23/24 15:13 UA Ketone Last Edit by Jovana Jang on 04/23/24 15:13 UA Bilirubin 0 mg/dL Last Edit by Jovana Jang on 04/23/24 15:13 UA Glucose 0 mg/dL Last Edit by Jovana Jang on 04/23/24 15:13 Results Reviewed Results Reviewed: Laboratory Last Values Urine pH (Auto) 5.5 04/23/24 15:02 Specific [place] (Auto) 1.020 04/23/24 15:02 Urine Protein (Auto) 15 mg/dL 04/23/24 15:02 Glucose (UA)(Auto) 0 mg/dL 04/23/24 15:02 Urine Blood (Auto) 200 Rei/uL 04/23/24 15:02 Urine Bilirubin (Auto) 0 mg/dL 04/23/24 15:02 Urine Urobilinogen (Auto) 0.2 mg/dL 04/23/24 15:02 Leukocyte Esterase (Auto) 0 Valentín/uL 04/23/24 15:02 Assessment & Plan Assessment & Plan (1) Nicotine dependence, cigarettes, uncomplicated: Comment: (46 years, 1ppd x 15yrs, approx 1/2 ppd x 30 yrs) Code(s): F17.210 - Nicotine dependence, cigarettes, uncomplicated Category: Medical (2) Abnormal urine cytology: Code(s): R82.89 - Other abnormal findings on cytological and histological examination of urine Category: Medical (3) Microscopic hematuria: Code(s): R31.29 - Other microscopic hematuria Category: Medical Plan In office urinalysis results reviewed with the patient today; as noted above; will send for urine cytology. Patient currently denies any bothersome urinary issues or concerns. He reports be happy with current voiding parameters. We discussed obtaining CT urogram for further assessment evaluation. BUN and creatinine ordered for imaging. Follow-up in office cystoscopy with imaging and labs to be completed prior; or sooner with any issues, concerns, and or questions. Orders: Orders AMB Urinalysis Automated Today Z13.9 - Encounter for screening, unspecified Urine Cytology Today R82.89 - Other abnormal findings on cytological and histological examination of urine CT urogram Today F17.210 - Nicotine dependence, cigarettes, uncomplicated, R31.29 - Other microscopic hematuria, R82.89 - Other abnormal findings on cytological and histological examination of urine Blood Urea Nitrogen Today F17.210 - Nicotine dependence, cigarettes, uncompli cated, R31.29 - Other microscopic hematuria, R82.89 - Other abnormal findings on cytological and histological examination of urine Creatinine Today F17.210 - Nicotine dependence, cigarettes, uncomplicated, R31.29 - Other microscopic hematuria, R82.89 - Other abnormal findings on cytological and histological examination of urine Patient Instructions: The patient had an opportunity to ask questions regarding the treatment plan. All questions were answered. Physical exam, labs, and imaging were discussed and reviewed in detail. As well as risks, benefits, and discussion of treatment choices. No major barriers to understanding were identified. The patient expressed understanding and agreement with the above treatment plan. The patient was made aware they should contact our office by phone for worsening of their current condition, the appearance of new symptoms, or with any questions or concerns. Compliance is encouraged with any medications and follow up testing that is ordered. It is a privilege to be allowed the opportunity to participate in? your urological care.? Again, if you have any questions or concerns If you have any questions or concerns please do not hesitate to contact me. The office is [phone]. This note is constructed using voice recognition software. While every effort has been made to ensure accuracy car storer errors may have been included. Yours sincerely, CELESTE Gonzalez Coding Level of Care Code New Pt Level 3 (04950) Diagnoses Nicotine dependence, cigarettes, uncomplicated F17.210 Abnormal urine cytology R82.89 Microscopic hematuria R31.29
--- OUTSIDE RECORDS SUMMARY | 2024-04-23 18:20 | XMS_ITS ---
Author Organization [facility] Address [address] [place] [phone] Care Team Providers Care Travel Pta Name Role Phone Jenny HAMILTON, Selene Primary Care Provider Unavail able Cory Chen Unavailable [phone] REASON FOR VISIT screening PROBLEMS Problem Type ICD Code Onset Dates Problem Status W/U Status Risk SNOMED Code Notes Problem Diverticulosis of large intestine without perforation or abscess without bleeding (K57.30) Active confirmed Diverticul ar disease of colon (118049788) Encounters Encounter Location Date Provider Diagnosis [facility] [place] [address] [place] [phone] 09/08/2023 Cory Chen Encounter for scre ening colonoscopy Z12.11 ; Colon polyps K63.5 ; Diverticulosis of large intestine without perforation or abscess without bleeding K57.30 and Other hemorrhoids K64.8 ASSESSMENTS Encounter Date Diagnosis Assessment Notes Treatment Notes Treatment Clinical Notes 09/08/2023 Encounter for screening colonoscopy (ICD-10 - Z12.11) 09/08/2023 Colon polyps (ICD-10 - K63.5) 09/08/2023 Diverticulosis of large intestine without perforation or abscess without bleeding (ICD-10 - K57.30) 09/08/2023 Other hemorrhoids (ICD-10 - K64.8) PLAN OF TREATMENT No Information
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
--- OUTSIDE RECORDS SUMMARY | 2024-04-23 18:20 | XMS_ITS ---
Author Organization [facility] Address [address] [place] [phone] Care Team Providers Care Developer Analyst Name Role Phone Jenny HAMILTON, Selene Primary Care Provider Unavail Cory Arriaga [phone] ALLERGIES No Known Allergies REASON FOR VISIT Patient presents today for a colon screening MEDICATIONS Medication SIG (Take, Route, Fr equency, [...] W/U Status Risk SNOMED Code Notes Problem Diarrhea (R19.7) Active confirmed Diarrhea (78236270) Problem Colon cancer screening (Z12.11) Active confirmed Colon cancer screening (779790743) VITAL SIGNS Blood pressure systolic 00 mm Hg 05/24/19 24 Blood pressure diastolic 00 mm Hg 024 Height 5 ft 11 in in 05/24/2023 Weight 184 lbs 05/24/2023 BMI 25.66 kg/m2 05/24/2023 Encounters Encounter Location Date Provider Diagnosis [facility] [address] [place] [phone] 05/24/2023 Cory Chen Diarrhea R19.7 and Colon cancer screening Z12.11 ASSESSMENTS Encounter Date Diagnosis Assessment Notes Treatment Notes Treatment Clinical Notes 05/24/2023 Diarrhea (ICD-10 - R19.7) Use Imodium as needed for diarrhea 05/24/2023 Colon cancer screening (ICD-10 - Z12.11) PLAN OF TREATMENT Treatment Notes Assessment Notes Diarrhea Use Imodium as neede d for diarrhea Pending Test Test Name Order Date CELIAC PANEL #10 05/24/2023 Future Test Test Name Order Date COLONOSCOPY 05/24/2023 Next Appt Details Follow Up: prn, Reason: Progress Notes * Examination Category Sub-Category Detail Notes General Examination GENERAL APPEARANCE: pleasant , well nourished, well developed, in no acute distress HEAD: EYES: sclera non-icteric EARS: NOSE: THROAT: NECK/THYROID: no cervical lymphade nopathy, neck supple HEART: S1, S2 normal CHEST: LUNGS: clear to auscultatio n bilaterally ABDOMEN: normal bowel sounds, no guarding or rigidity, no guarding or rigidity, no masses palpable, soft, nontender, nondistended NEUROLOGIC: alert and oriented SKIN: nonjaundiced, no spi jarret angiomata EXTREMITIES: no edema PERIPHERAL PULSES: BACK: BREASTS: MUSCULOSKELETAL: MALE GENITOURINARY: LYMPH NODES: RECTAL EXAM: FEMALE GENITOURINARY: ORAL CAVITY: mucosa moist
== END 2024-04-23 15:06 | disposition home or self-care (01) ==
PROVIDERS: PCP Internal Medicine; Visit Provider Nurse Practitioner Family
DX: F17.210 Nicotine dependence, cigarettes, uncomplicated (principal); R82.89 Other abnormal findings on cytological and histological examination of urine; R31.29 Other microscopic hematuria; Z13.9 Encounter for screening, unspecified
CPT/HCPCS: 99203

== ENCOUNTER 2024-05-30 16:12 | Outpatient (REF) | payer OTHER, SELFPAY ==
--- NOTE | ~2024-05-30 | CT_ITS ---
CLINICAL HISTORY: F17.210 - Nicotine dependence, cigarettes, uncomplicated Examination: CT lung cancer screening History: Screening examination performed for pulmonary nodules. Technique: Axial CT images of the chest using low-dose technique. Effective radiation dose total: 54.6 mGy-cm, CTDIvol 1.53 mGy. Referring provider counseled the patient on shared decision-making for LDCT screening. Additional counseling was provided on smoking cessation. Comparison: CT/TN/SR - CT LUNG SCREENING - 05/26/23 10:24 EDT Findings: Lungs: New consolidation at the lung bases, xsckb-perruth-lfkv-left. Associated centrilobular ground-glass/nodular opacities measuring up to 5 mm, also new. Mild amount of linear scarring versus subsegmental atelectasis in the right middle lobe and lingula, unchanged. Unchanged mild amount of bilateral ground-glass opacity at the lung bases. Calcified granuloma. Mild emphysema and bronchial wall thickening. Coronary artery calcifications: [id number]-pm-[id number]. Other: None Limited upper abdomen: Status post cholecystectomy. Impression: LungRADS 0: Incomplete screening due to findings suggestive of an acute infectious/inflammatory process; new consolidation in the lung bases with associated centrilobular nodules is favored to be multifocal pneumonia. Three-month follow up LDCT is recommended. ##L0# Category 1: Normal; continue annual screening Category 2: Benign appearance or behavior, continue annual screening Category 3: Probably benign, [address] recommended Category 4A: Suspicious, [address] recommended; may consider PET/CT Category 4B: Suspicious, Additional diagnostics and/or tissue sampling recommended Category 4X: Suspicious, Additional diagnostics and/or tissue sampling recommended Category 0: Recalls (incomplete screen due to Incomplete coverage, Noise, Respiratory motion, Expiration, Obscured by acute abnormality) This document has been electronically signed by: Isatu Collado MD on 05/31/2024 14:07:56
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
--- OUTSIDE RECORDS SUMMARY | 2024-05-30 17:08 | XMS_ITS ---
Author Organization [facility] Address [address] [place] [phone] Care Team Providers Care Case Making Machine Operator Name Role Phone Jenny HAMILTON, Selene Primary Care Provider Unavail able Cory Chen Unavailable [phone] REASON FOR VISIT screening Problems Problem Type SNOMED Code ICD Code Onset Dates Problem Status W/U Status Risk Notes Problem Diverticular disease of colon (967643884) Diverticulosis of large intestine without perforation or abscess without bleeding (K57.30) Active confirmed Encounters Encounter Location Date Provider Diagnosis [facility] Outpatient [address] [place] [phone] 09/08/2023 Cory Chen Encounter for scre ening [...] Information Progress Notes * ELAINE RIZZO MDOB:[birth year] (63 yo M)Acc No.[id number]:09/08/2023 COLON WITH MAC Patient:?ELAINE RIZZO Provider:?Cory Chen MD :1960???Age:62 Y???Sex:Male Jim e:09/08/2023 Address:[address] [place] [address] Pcp:Selene Alvarado NP Subjective: * Chief Complaints: * ???1. Screening. * Medical History:? Objective: * Vitals:? Assessment: * Assessment: 1.?Encounter for screening c olonoscopy - Z12.11 (Primary)???2.?Colon polyps - K63.5???3.?Diverticulosis of large intestine without perforation or abscess without bleeding - K57.30???4.?Other hemorrhoids - K64.8??? Plan: * Treatment: * Procedure Codes:?96296 LESIO N REMOVAL COLONOSCOPY, Modifiers: PT , 85786 COLONOSCOPY AND BIOPSY, Modifiers: 59 , PT * * The named appointment provid er may or may not be the originator of this progress note, and it is not deemed complete until electronically signed by the appointment provider. Sign off status: Pending * Provider:?Cory Chen MD Date:? 024 Generated for Afua maher/Jorge Alberto/eTransmitting on:?05/30/2024 05:07 PM EDT
== END 2024-05-30 16:13 | disposition home or self-care (01) ==
LOC: HO.CT 16:12
PROVIDERS: PCP Internal Medicine; Visit Provider Physician Assistant Medical
DX: Z12.2 Encounter for screening for malignant neoplasm of respiratory organs (principal); F17.210 Nicotine dependence, cigarettes, uncomplicated
CPT/HCPCS: 71271

== ENCOUNTER → 2024-05-30 16:22 | Outpatient (BNV) | payer OTHER, SELFPAY | PROVIDERS: PCP Internal Medicine; Visit Provider Radiology Diagnostic Radiology | DX: F17.210 Nicotine dependence, cigarettes, uncomplicated (principal) | CPT/HCPCS: 71271 ==

== ENCOUNTER 2024-06-10 10:23 | Outpatient (AMB) | payer OTHER, SELFPAY ==
--- NOTE | 2024-06-10 10:30 | A.OFFVIS_ITS ---
Intake Visit Reasons: Cysto/ CT/Labs/PVR Intake Note: Patient presents for a cystoscopy/CT/Labs Urology Medications: none Blood Thinner: none Senior Tax Specialist Required: No Accompanied by: Self / Same As Patient Allergies No Known Allergies Allergy (Verified 06/10/24 10:31) HPI Comments Details: 06/10/24-here for office olplzaajic-18-pwqs-old male patient of Dr. Sexton. He has a past medical history of overweight, chronic kidney disease stage 3, vitamin-D deficiency, and Meckel diverticulum. FU for microscopic hematuria in the setting of nicotine dependence. CT urogram is pending. urine cytology 04/23/24-negative for malignant cells. Cystoscopy findings: prostatic urethra bilobar enlargement, bulbous urethra WNL, no suspicious bladder lesions visualized 04/23/24--Uriel is a very pleasant 63-year-old male patient of Dr. Sexton. He has a past medical history of overweight, chronic kidney disease s tage 3, vitamin-D deficiency, and Meckel diverticulum. He presents to the office today as a new patient for microscopic hematuria in the setting of nicotine dependence. In discussion with the patient today he reports having followed up with his PCP for his annual visit at which time urinalysis noted microscopic hematuria and unofficial cytology was performed and noted to be abnormal. When asked he does report a longstanding history of nicotine dependence for 45 years however quit a little over a year ago. He reports when he was smoking smoked approximately half a pack or less of cigarettes per day. In office urinalysis results reviewed with the patient today 3+ microscopic hematuria noted. We discussed at length potential causes of microscopic hematuria as well as further workup to include imaging as well as in office cystoscopy. When asked he denies any urological issues. He denies urinary urgency, urinary frequency, incontinence, nocturia, hematuria, dysuria, foul smelling urine, changes to urinary stream, flank pain, fever, and or chills. He is happy with his current voiding parameters. I discussed reasons for blood in the urine may include but are not limited to kidney stones, cancer in the urinary tract, BPH, kidney stone disease or inflammatory conditions of the urinary tract. I have discussed workup to include cystoscopy evaluation. He otherwise offers no other issues or concerns at this time. [facility] Medical History Overweight (BMI 25.0-29.9) Chronic kidney disease, stage III (moderate) Vitamin D deficiency Meckel diverticulum Surgical History History of colonoscopy H/O fasciotomy H/O: knee surgery H/O adenoidectomy Hx of tonsillectomy History of appendectomy History of cholecystectomy Family History Mother Diabetes Mild dementia Father Esophageal cancer Pneumonitis Social History Housing: House Patient Tobacco Use Status: Current everyday Tobacco user Tobacco use type: Cigarette Cigarette Packs Per Day: 0.5 Cigarettes Per Day: 10.0 Years Smoked: 45 years, 1ppd x 15yrs, approx 1/2 ppd x 30 yrs service: Yes Current occupational status: employed Cognitive needs: No Hearing needs: No Vision needs: No Review of Systems Const All systems reviewed & are unremarkable except as noted in HPI and below Reports no additional complaints Eyes Reports no additional complaints ENT Reports no additional complaints Card Reports no additional complaints Resp Reports no additional complaints GI Reports no additional complaints Reports as per HPI Musc Reports no additional complaints Skin/Breast Reports system reviewed and no additional complaints, except as documented Neuro Reports no additional complaints Psych Reports no additional complaints Endo Reports no additional complaints Bishop/Lymph Reports no additional complaints Aller/Immun Reports no additional complaints Office Procedures Cystoscopy Consent Discussed risk and benefit or proposed procedure with the patient. Information consent for procedure given to the patient. Discussed technical aspects, risks, benefits and alternatives in full. Addressed all of the patient's questions and concerns regarding the procedure. The patient demonstrated knowledge and understanding. They wish to proceed with this procedure. Preparation The patient was prepped in the usual manner. A grades 1 thru 6 home teacher was present and in the room. Genitalia was prepped with betadine solution in a sterile manner. Lidocaine Jelly 2% was placed into the urethra and 16Fr flexible Olympus cystoscope was inserted into the meatus after adequate lubrication. Time out per protocol performed. The flexible cystoscope is passed transurethrally: The bladder was inspected in its entirety with utilization retroflexion displaying: Tumor(s): no suspicious bladder lesions visualized Trabeculation: NA Mucosal Erthema: NA Orifices: normal shape and position Urethra: normal Cystoscopy findings: prostatic urethra bilobar enlargement, bulbous urethra WNL, no suspicious bladder lesions visualized [id number] DISPOSABLE SCOPE URO-G FLEXIBLE SCOPE Procedure code (CPT) selection complete Office Meds lidocaine HCl 2 % mucosal jelly in applicator Performing Provider: Phill Palacio MD Performing Location: [facility] Administered by: Nuris Jarquin RN on 06/10/24 10:58 Dose Route Admin Location Dispensed Lot Number Expiration Date NDC Speech Language Pathologist 20 mL intra-urethral 20 mL ciprofloxacin HCl 500 mg tablet Performing Provider: Phill Palacio MD Performing Location: [facility] Administered by: Nuris Jarquin RN on 06/10/24 10:58 Dose Route Admin Location Dispensed Lot Number Expiration Date NDC Speech Language Pathologist 500 mg PO 1 tab phenazopyridine 200 mg tablet Performing Provider: Phill Palacio MD Performing Location: [facility] Administered by: Nuris Jarquin RN on 06/10/24 10:58 Dose Route Admin Location Dispensed Lot Number Expiration Date NDC Speech Language Pathologist 200 mg PO 1 tab Results Reviewed Results Reviewed: Collected: 04/23/24 Location: [facility] Received: 04/24/24 Diagnosis Urine: Negative for high-grade urothelial carcinoma. COMMENT: Examination of a monolayer preparation slide shows scattered benign urothelial cells with reactive changes, occasional benign squamous cells, casts, cellular debris, degenerated epithelioid cell groups (? tubular) and scattered red blood cells and inflammatory cells. Clinical History Other abnormal findings on cytological and histological examination of urine Material Received Urine Gross Description Received is 32 cc of clear dark yellow fluid from which a ThinPrep slide is prepared. Assessment & Plan Assessment & Plan (1) Microscopic hematuria: Code(s): R31.29 - Other microscopic hematuria Category: Medical (2) Nicotine dependence, cigarettes, uncomplicated: Comment: (45 years, 1ppd x 15yrs, approx 1/2 ppd x 30 yrs) Code(s): F17.210 - Nicotine dependence, cigarettes, uncomplicated Category: Medical Plan CT pending, FU with Luisana Smiley NP to review results Orders: Orders AMB Urinalysis Automated Today Z13.9 - Encounter for screening, unspecified AMB Cystoscopy Today R31.29 - Other microscopic hematuria Patient Instructions: The patient had an opportunity to ask questions regarding treatment plan. The patient expressed understanding and agreement with the above treatment plan. The patient is aware they should contact our office by phone for worsening of their current condition or the appearance of new symptoms. Compliance is encouraged with any medications and followup testing that is ordered. It is a privilege to be allowed the opportunity to participate in the urologic care of your patient. If you have any questions or concerns regarding treatment for the above conditions please do not hesitate to contact me. The office telephone contact is [phone]. This note is constructed in part using voice recognition software. While every effort has been made to ensure accuracy assembler surgical garment errors may have been included. Yours sincerely, Phill Palacio MD Coding Level of Care Code Procedure Only Diagnoses Microscopic hematuria R31.29 Nicotine dependence, cigarettes, uncomplicated F17.210 CPT Codes Cystoscopy - CPT: 56753-[id number] ([id number])
--- OUTSIDE RECORDS SUMMARY | 2024-06-10 11:59 | XMS_ITS ---
Author Organization [facility] Address [address] [place] [phone] Care Team Providers Care Research Engineer Marine Equipment Name Role Phone Jenny HAMILTON, Selene Primary Care Provider Unavail able Cory Chen Unavailable [phone] REASON FOR VISIT screening Problems Problem Type SNOMED Code ICD Code Onset Dates Problem Status W/U Status Risk Notes Problem Diverticular disease of colon (497708139) Diverticulosis of large intestine without perforation or abscess without bleeding (K57.30) Active confirmed Encounters Encounter Location Date Provider Diagnosis [facility] [address] [place] [phone] 09/08/2023 Cory Chen Encounter for scre ening [...] * ELAINE RIZZO MDOB:[birth year] (63 yo M)Acc No.[id number]:09/08/2023 COLON WITH MAC Patient:?ELAINE RIZZO Provider:?Cory Chen MD :1960???Age:62 Y???Sex:Male Jim e:09/08/2023 Address:[address] [place] [address] Pcp:Selene Alvarado NP Subjective: * Chief Complaints: * ???1. Screening. * Medical History:? Objective: * Vitals:? Assessment: * Assessment: 1.?Encounter for screening c olonoscopy - Z12.11 (Primary)???2.?Colon polyps - K63.5???3.?Diverticulosis of large intestine without perforation or abscess without bleeding - K57.30???4.?Other hemorrhoids - K64.8??? Plan: * Treatment: * Procedure Codes:?92418 LESIO N REMOVAL COLONOSCOPY, Modifiers: PT , 30867 COLONOSCOPY AND BIOPSY, Modifiers: 59 , PT * * The named appointment provid er may or may not be the originator of this progress note, and it is not deemed complete until electronically signed by the appointment provider. Sign off status: Pending * Provider:?Cory Chen MD Date:? 024 Generated for Afua maher/Jorge Alberto/eTransmitting on:?06/10/2024 11:59 AM EDT
--- OUTSIDE RECORDS SUMMARY | 2024-06-10 11:59 | XMS_ITS ---
Author Organization [facility] Address [address] [place] [phone] Care Team Providers Care Creative Writing English Professor Name Role Phone Jenny HAMILTON, Selene Primary Care Provider Unavail Cory Arriaga Unavailable [phone] Allergies No Known Allergies REASON FOR VISIT [...] Status W/U Status Risk Notes Problem Diarrhea (33359858) Diarrhea (R19.7) Active confirmed Problem Colon cancer screening (126146762) Colon cancer screening (Z12.11) Active confirmed Vital Signs Blood pressure systolic 00 mm Hg 05/24/19 24 Blood pressure diastolic 00 mm Hg 024 Height 5 ft 11 in in 05/24/2023 Weight 184 lbs 05/24/2023 BMI 25.66 kg/m2 05/24/2023 Encounters Encounter Location Date Provider Diagnosis [facility] [address] [place] [phone] 05/24/2023 Cory Chen Diarrhea R19.7 and Colon [...] * URIEL RIZZO MDOB:[birth year] (62 yo M)Acc No.[id number]:05/24/2023 Progress Notes Patient:?URIEL RIZZO Provider:?Cory Chen MD :1960???Age:62 Y???Sex:Male Jim e:05/24/2023 Address:[address] [place] [address] Pcp:Selene Alvarado NP Subjective: * Chief Complaints: [...] in the past year??No,?Points?0,?Interpretation?Negative.?Miscellaneous:?Marital status: . 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 ???Smokes 6-8 cigs QD, Alcoholism [...] Procedure Codes:?3017F COLOR ECTAL CA SCREEN DOC [id number] Pt scrn tbco and id as [id number] BP SCR NOT PRFRM REC REASON NOS * Preventive Medicine:? ??Counseling:?Care goal follow-up plan:?Above Normal BMI Follow-up?Giving encouragement to exercise,?BMI management provided?Yes.? * Follow Up:?prn * * Sign off status: Completed true * Provider:?Cory Chen MD Date:? 024 Generated for Afua maher/Jorge Alberto/eTransmitting on:?06/10/2024 11:59 AM EDT History and Physical Notes * HPI [...]
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
== END 2024-06-10 11:13 | disposition home or self-care (01) ==
LOC: HO.HUSH 10:27
PROVIDERS: PCP Internal Medicine; Visit Provider Urology
DX: R31.29 Other microscopic hematuria (principal); F17.210 Nicotine dependence, cigarettes, uncomplicated; Z13.9 Encounter for screening, unspecified
CPT/HCPCS: 52000

== ENCOUNTER → 2024-06-10 10:23 | Outpatient (BNVA) | payer OTHER, SELFPAY | PROVIDERS: PCP Internal Medicine; Visit Provider Urology | DX: R31.29 Other microscopic hematuria (principal); F17.210 Nicotine dependence, cigarettes, uncomplicated | CPT/HCPCS: 52000; 81003 ==

== ENCOUNTER 2024-06-21 15:38 | Outpatient (REF) | payer OTHER, SELFPAY ==
[2024-06-21 16:39] LABS: Blood Urea Nitrogen 27 mg/dL (9-16); Estimated Glomerular Filt Rate 54
== END 2024-06-21 15:39 | disposition home or self-care (01) ==
LOC: HO.LAB 15:38
PROVIDERS: PCP Internal Medicine; Visit Provider Nurse Practitioner Family
DX: R31.29 Other microscopic hematuria (principal); R82.89 Other abnormal findings on cytological and histological examination of urine; F17.210 Nicotine dependence, cigarettes, uncomplicated
CPT/HCPCS: 36415; 82565; 84520

== ENCOUNTER 2024-06-25 08:50 | Outpatient (REF) | payer OTHER, SELFPAY ==
--- NOTE | ~2024-06-25 | CT_ITS ---
CLINICAL HISTORY: F17.210 - Nicotine dependence, cigarettes, uncomplicated CT abdomen and pelvis with and without contrast Comparison: None Findings: The lung bases are clear. Calcification of the coronary vasculature. Cholecystectomy clips are present. Solid organs are within normal limits. No urolithiasis nor evidence of renal neoplasm. No bowel obstruction, pneumoperitoneum, or pneumatosis. Pelvic contents unremarkable. Appendix is not seen. Urinary bladder is within normal limits. No acute fracture. IMPRESSION: 1. No acute process. 2. Coronary artery disease. This document has been electronically signed by: Lv Blake MD on 06/26/2024 14:20:04
[2024-06-25] MEDS: iohexoL 350 MG/ML 100 ML INFUS..BTL IV (09:36)
[2024-06-25 14:11] LABS: MANUAL DIFF FLAG NO
[2024-06-25 14:50] LABS: Basophils Percent Auto 0.4 % (0-2); Eosinophils Absolute Auto 0.1 X10*3/uL (0.0-0.4); Eosinophils Percent Auto 1.5 % (0-4); Hematocrit 40.6 % (42.0-52.0); Hemoglobin 13.5 g/dl (14.0-18.0); Imm Gran Abs Auto 0.01 X10*3/uL (0.00-0.03); Imm Gran Pct Auto 0.1 % (0.0-0.4); Lymphocytes Absolute Auto 1.7 X10*3/uL (1.2-4.9); Lymphocytes Percent Auto 23.9 % (20-40); Mean Corpuscular HGB Conc 33.3 g/dl (31.0-36.0); Mean Corpuscular Hemoglobin 29.1 pg (27.0-33.0); Mean Corpuscular Volume 87.5 fL (80.0-98.0); Mean Platelet Volume 10.2 fL (9.4-12.4); Monocytes Absolute Auto 0.3 X10*3/uL (0.1-1.2); Monocytes Percent Auto 4.5 % (2-11); Neutrophils Percent Auto 69.6 % (45-73); Platelet Count 215 X10*3/uL (160-400); Red Blood Count 4.64 X10*6/uL (4.60-5.80); Red Cell Distribution Width 13.8 % (11.0-16.0); White Blood Count 7.1 X10*3/uL (4.8-10.8)
[2024-06-25 15:26] LABS: Erythrocyte Sedimentation Rate 6 MM/HR (0-15)
== END 2024-06-25 08:51 | disposition home or self-care (01) ==
LOC: HO.CT 08:50
PROVIDERS: Absent Provider Hospitalist; PCP Internal Medicine; Visit Provider Nurse Practitioner Family
DX: R31.29 Other microscopic hematuria (principal); R91.8 Other nonspecific abnormal finding of lung field; J18.1 Lobar pneumonia, unspecified organism; R82.89 Other abnormal findings on cytological and histological examination of urine; F17.210 Nicotine dependence, cigarettes, uncomplicated
CPT/HCPCS: 36415; 74178; 82785; 85025; 85652; 86331; 86606; 86609; Q9967

== ENCOUNTER → 2024-06-25 08:51 | Outpatient (BNV) | payer OTHER, SELFPAY | PROVIDERS: Absent Provider Hospitalist; PCP Internal Medicine; Visit Provider Radiology Diagnostic Radiology | DX: I25.10 Atherosclerotic heart disease of native coronary artery without angina pectoris (principal) | CPT/HCPCS: 74178 ==

== ENCOUNTER 2024-06-25 10:30 | Outpatient (AMB) | payer OTHER, SELFPAY ==
[2024-06-25 10:32] VITALS: BP 140/92; PULSE 71; O2SAT 99; BMI 27.4
--- NOTE | 2024-06-25 10:32 | MHC.OFFVIS ---
Vital Signs 06/25/24 10:32 Height 5 ft 10 in Weight 190 lb 11.198 oz BMI 27.4 BP 140/92 H Blood Pressure Location Rt brachial Position Sitting Pulse 71 Pulse Source Pulse Oximeter Pulse Oximetry (%) 99 Oxygen Delivery Method Room Air Intake Visit Reasons: Lobar Pneumonia Allergies No Known Allergies Allergy (Verified 06/25/24 10:35) HPI Comments Details: The patient is here for pulmonary evaluation. The patient is a 63-year-old gentleman former smoker who presents with an abnormal CT scan of the chest. Apparently the patient became part of the lung cancer screening program. He was fairly asymptomatic although he did have a cough intermittently. CT scan was done which was personally by me demonstrating consolidation in the right lower lobe in addition to significant treating budding and also some disease in the left lower lobe area. 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 He does have a lot of dust that he has cleans especially when he keeps the birds in his garage. Significant does the buildup. He usually cleans his without a mask. The patient had done significant cleaning prior to the last CT scan. 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 In the meantime he did follow-up with Urology in a CT scan of the bladder was requested. I did review the CT scan he just had today and compared to his previous CAT scan did he had beginning of May 2024. It actually demonstrated interval resolution of the consolidation he had in the right base leaving some areas of atelectasis. And some slight haziness. Therefore likely some partial treatment already happened and will go ahead and place him on some antibiotics to finish the rest of the residual disease state. The patient understands that the birds may carry silicosis and other burdens. Hypersensitivity panel was also been requested to make sure there is no evidence of any hypersensitivity disease although this is unlikely since it typically involves in the upper lung zones and his disease state was mainly in the lower lung zones. Some with smoking history he does have some emphysema on his CAT scan. Will request pulmonary function studies along with the blood work. The patient will complete the antibiotics and follow-up sometime in the fall where we will perform some pulmonary function studies. [facility] Medical History (Updated 06/25/24 @ 23:03 by Dilip Campa MD) Emphysema lung Overweight (BMI 25.0-29.9) Chronic kidney disease, stage III (moderate) Vitamin D deficiency Meckel diverticulum Surgical History History of colonoscopy H/O fasciotomy H/O: knee surgery H/O adenoidectomy Hx of tonsillectomy History of appendectomy History of cholecystectomy Family History Mother Diabetes Mild dementia Father Esophageal cancer Pneumonitis Social History (Updated 06/25/24 @ 10:35 by Raina Caldera [facility]) Housing: House Patient Tobacco Use Status: Former Tobacco user Tobacco use type: Cigarette Cigarette Packs Per Day: 0.5 Cigarettes Per Day: 10.0 Years Smoked: 45 years, 1ppd x 15yrs, approx 1/2 ppd x 30 yrs service: Yes Current occupational status: employed Cognitive needs: No Hearing needs: No Vision needs: No Review of Systems Const Denies chills, Denies fatigue, Denies fever(s), Denies headache(s), Denies malaise and Denies weakness Eyes Denies blurry vision, Denies change in vision, Denies irritation and Denies itchy eyes ENT Denies dysphagia, Denies dizziness, Denies otalgia, Denies headache(s), Denies nasal congestion, Denies neck pain, Denies odynophagia and Denies sore throat Card Denies chest pain, Denies rapid heart rate, Denies irregular heart rhythm, Denies palpitations and Denies dyspnea Resp Denies chest congestion, Reports cough, Denies dyspnea and Denies wheezing GI Denies abdominal pain, Denies bloating, Denies constipation, Denies dysphagia, Denies heartburn, Denies diarrhea, Denies nausea, Denies odynophagia and Denies vomiting Denies hematuria, Denies difficulty urinating, Denies dysuria, Denies urinary frequency and Denies urinary urgency Musc Denies back pain, Reports arthralgias (on and off, in the left hip and in both shoulders), Denies joint swelling, Denies muscle weakness and Denies neck pain Skin/Breast Denies lesions, Denies rash and Denies unusual bruising Neuro Denies dizziness, Denies headache(s), Denies paresthesias and Denies weakness Endo Denies fatigue and Denies palpitations Aller/Immun Denies itchy eyes and Denies wheezing Physical Exam Vital Signs: Last Vital Signs Pulse 71 06/25/24 10:32 BP 140/92 H 06/25/24 10:32 Pulse Ox 99 06/25/24 10:32 Oxygen Delivery Method Room Air 06/25/24 10:32 BMI result Body Mass Index 27.4 Const General: cooperative, healthy appearing, comfortable, no acute distress, well developed, alert and awake Orientation/consciousness: patient oriented x3 Limitations: no limitations HEENT Head: Yes normal to inspection, Yes normocephalic and Yes atraumatic Ears: hearing grossly normal bilaterally Eyes General: appearance normal, both eyes and all related structures Neck Neck: Yes normal visual inspection and Yes trachea midline Chest Chest palpation & inspection: normal inspection of the chest Resp Effort & Inspection: normal respiratory effort and able to speak in complete sentences Auscultation: clear to auscultation bilaterally Cardio Rate: regular rate Heart sounds: S1 normal heart sound present and S2 normal heart sound present GI Inspection: Yes normal to inspection Palpation (GI): Soft to palpation Skin General skin exam: no rashes or lesions noted Neuro General: patient oriented x3 Extrem General: Yes normal to inspection Psych Appearance: grossly normal and well kempt Mental Status: mental status grossly normal Results Reviewed Results Reviewed: Assessment & Plan Assessment & Plan (1) Lung consolidation: Code(s): J18.1 - Lobar pneumonia, unspecified organism Category: Medical (2) Emphysema lung: Code(s): J43.9 - Emphysema, unspecified Category: Medical Qualifiers: Emphysema type: centrilobular Qualified Code(s): J43.2 - Centrilobular emphysema Plan Complete Doxycycline to treat for potential psitticosis Bloodwork r/o HSP PFTs serial imaging to follow to complete resolution 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 F/U 3-4 months Orders: Orders PFT pulmonary function test Today J18.1 - Lobar pneumonia, unspecified organism Immunoglobulin E Today J18.1 - Lobar pneumonia, unspecified organism Hypersensitive Pneumonitis Prf Today J18.1 - Lobar pneumonia, unspecified organism, R91.8 - Other nonspecific abnormal finding of lung field Complete Blood Count Auto Diff Today J18.1 - Lobar pneumonia, unspecified organism Erythrocyte Sedimentation Rate Today J18.1 - Lobar pneumonia, unspecified organism Medications: New doxycycline monohydrate 100 mg PO BID 28 tabs 0RF 14 days Coding Level of Care Code New Pt Level 4 (39855) Diagnoses Lung consolidation J18.1 Centrilobular emphysema J43.2 Emphysema type: centrilobular Time Spent (min) 40
== END 2024-06-25 10:55 | disposition home or self-care (01) ==
LOC: HO.HPS 10:30
PROVIDERS: PCP Internal Medicine; Referring Provider Physician Assistant Medical; Visit Provider Hospitalist
DX: J18.1 Lobar pneumonia, unspecified organism (principal); J43.2 Centrilobular emphysema
CPT/HCPCS: 99204

== ENCOUNTER 2024-07-23 16:15 | Outpatient (AMB) | payer OTHER, SELFPAY ==
--- NOTE | 2024-07-23 16:08 | A.OFFVIS_ITS ---
Intake Visit Reasons: follow up/CT(set) Intake Note: Patient presents today for tele visit follow up on CT Scan and microscopic hematuria Imaging Completed : 06/25/24 Urology Medications: none Blood Thinner: none Needle Setter Required: No Accompanied by: Self / Same As Patient Allergies No Known Allergies Allergy (Verified 07/23/24 16:08) Medication List - Last Reconciled 07/23/24 by CELESTE Gonzalez No Known Home Meds HPI Comments Details: Uriel is a very pleasant 63-year-old male patient of Dr. Sexton. He has a past medical history of overweight, chronic kidney disease stage 3, vitamin-D deficiency, and Meckel diverticulum. He is being followed up on today via video telehealth for his history of microscopic hematuria in the setting of nicotine dependence. Of note, patient underwent an office cystoscopy 06/[address] Raghav Demarco with Cystoscopy findings: prostatic urethra bilobar enlargement, bulbous urethra WNL, no suspicious bladder lesions visualized however at time of in office cystoscopy CT urogram had still been pending therefore today's appointment was to review imaging results. CT urogram 06/21 no urolithiasis nor evidence of renal neoplasm. Pelvic contents are unremarkable. The urinary bladder is within normal limits. He does have a previous history of nicotine dependence for 45 years however quit October 2022. Previous urine cytology results 04/23 Negative for high-grade urothelial carcinoma. When asked he denies any urological issues. He denies urinary urgency, urinary frequency, incontinence, nocturia, hematuria, dysuria, foul smelling urine, changes to urinary stream, flank pain, fever, and or chills. He is happy with his current voiding parameters. He otherwise offers no other issues or concerns at this time. In review of patient's chart it appears PSAs are as follows: 02/18 3.7, 02/19 3.6 PFS Medical History Emphysema lung Overweight (BMI 25.0-29.9) Chronic kidney disease, stage III (moderate) Vitamin D deficiency Meckel diverticulum Surgical History History of colonoscopy H/O fasciotomy H/O: knee surgery H/O adenoidectomy Hx of tonsillectomy History of appendectomy History of cholecystectomy Family History Mother Diabetes Mild dementia Father Esophageal cancer Pneumonitis Social History (Updated 06/25/24 @ 10:35 by Raina Caldera [facility]) Housing: House Patient Tobacco Use Status: Former Tobacco user Tobacco use type: Cigarette Cigarette Packs Per Day: 0.5 Cigarettes Per Day: 10.0 Years Smoked: 45 years, 1ppd x 15yrs, approx 1/2 ppd x 30 yrs service: Yes Current occupational status: employed Cognitive needs: No Hearing needs: No Vision needs: No Review of Systems Const All systems reviewed & are unremarkable except as noted in HPI and below Physical Exam Const General: cooperative, healthy appearing, comfortable, no acute distress, well developed, alert and awake Orientation/consciousness: patient oriented x3 Resp Effort & Inspection: normal respiratory effort and able to speak in complete sentences Neuro General: patient oriented x3 Psych Appearance: grossly normal and well kempt Speech and movement: Clear speech present Attitude: cooperative Thought content: Normal thought content present Insight: Fair insight present (Psych) Judgement: Fair judgement present (Psych) Telehealth Telehealth Telehealth Platform: Telephone Location of provider rendering services: practice address Location of patient: address on file Patient Identification confirmed using: Name, : Yes Telehealth method: video Patient verbally consented to billing insurance company: Yes Patient informed of any privacy concerns related to visit: Yes Minutes spent on Phone/Video with Pt.: 15 Results Reviewed Results Reviewed: Date of Service: 06/25/24 Procedure(s): CT urogram Findings: The lung bases are clear. Calcification of the coronary vasculature. Cholecystectomy clips are present. Solid organs are within normal limits. No urolithiasis nor evidence of renal neoplasm. No bowel obstruction, pneumoperitoneum, or pneumatosis. Pelvic contents unremarkable. Appendix is not seen. Urinary bladder is within normal limits. No acute fracture. IMPRESSION: 1. No acute process. 2. Coronary artery disease. Assessment & Plan Assessment & Plan (1) Microscopic hematuria: Code(s): R31.29 - Other microscopic hematuria Category: Medical (2) Abnormal urine cytology: Code(s): R82.89 - Other abnormal findings on cytological and histological examination of urine Category: Medical (3) Elevated PSA: Code(s): R97.20 - Elevated prostate specific antigen [PSA] Category: Medical (4) Nicotine dependence, cigarettes, uncomplicated: Comment: (45 years, 1ppd x 15yrs, approx 1/2 ppd x 30 yrs) Code(s): F17.210 - Nicotine dependence, cigarettes, uncomplicated Category: Medical Plan Recent CT urogram results reviewed with the patient today; as noted above. Previous urine cytology results reviewed with the patient today; as noted above. Patient currently denies any bothersome urinary issues or concerns. He reports be happy with current voiding parameters. Will continue with surveillance monitoring. We discussed the importance of continuing to be smoke free. Will obtain PSA Follow-up in 6 months with PSA to be completed prior; or sooner with any issues, concerns, and or questions. Orders: Orders Prostate Specific Antigen 6 Months R97.20 - Elevated prostate specific antigen [PSA] Medications: Discontinued doxycycline monohydrate Discontinued Reason: Patient Completed Course 100 mg PO BID 14 days 28 tabs 0RF Patient Instructions: The patient had an opportunity to ask questions regarding the treatment plan. All questions were answered. Physical exam, labs, and imaging were discussed and reviewed in detail. As well as risks, benefits, and discussion of treatment choices. No major barriers to understanding were identified. The patient expressed understanding and agreement with the above treatment plan. The patient was made aware they should contact our office by phone for worsening of their current condition, the appearance of new symptoms, or with any questions or concerns. Compliance is encouraged with any medications and follow up testing that is ordered. It is a privilege to be allowed the opportunity to participate in? your urological care.? Again, if you have any questions or concerns If you have any questions or concerns please do not hesitate to contact me. The office is [phone]. This note is constructed using voice recognition software. While every effort has been made to ensure accuracy kicking machine operator errors may have been included. Yours sincerely, Luisana Smiley, [employer]IOR [employer] Coding Level of Care Code Tele Est Pt Level 3 (51229) Diagnoses Microscopic hematuria R31.29 Abnormal urine cytology R82.89 Elevated PSA R97.20 Nicotine dependence, cigarettes, uncomplicated F17.210
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
== END 2024-07-23 16:42 | disposition home or self-care (01) ==
LOC: HO.HUSH 16:15
PROVIDERS: PCP Internal Medicine; Visit Provider Nurse Practitioner Family
DX: R31.29 Other microscopic hematuria (principal); R82.89 Other abnormal findings on cytological and histological examination of urine; R97.20 Elevated prostate specific antigen [PSA]; F17.210 Nicotine dependence, cigarettes, uncomplicated
CPT/HCPCS: 99213

== ENCOUNTER 2024-08-14 14:54 | Outpatient (REF) | payer OTHER, SELFPAY ==
--- NOTE | 2024-08-14 14:58 | PFT_ITS ---
Indication: Dyspnea Spirometry FEV1 to FVC 69%; FEV1 3.08 L; FVC 4.49 L. no significant response to bronchodilators noted. Lung Volumes Total lung capacity 96% predicted Diffusion Capacity DLCO 73% predicted Comparisons None Interpretation There is an obstructive ventilatory defect consistent with mild COPD. No significant response to bronchodilators noted. Normal lung volumes. The patient does have a mild diffusion impairment secondary to likely COPD. Clinical correlation warranted. MTDD
[2024-08-14 15:32] VITALS: PULSE 75; O2SAT 99
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
== END 2024-08-14 14:55 | disposition home or self-care (01) ==
LOC: HO.RESP 14:54
PROVIDERS: PCP Internal Medicine; Visit Provider Hospitalist
DX: J18.1 Lobar pneumonia, unspecified organism (principal)
CPT/HCPCS: 94010; 94640; 94727; 94729

== ENCOUNTER → 2024-08-14 14:58 | Outpatient (BNV) | payer OTHER, SELFPAY | PROVIDERS: PCP Internal Medicine; Visit Provider Hospitalist | DX: R06.00 Dyspnea, unspecified (principal) | CPT/HCPCS: 94060; 94727; 94729 ==

== ENCOUNTER 2024-11-26 15:25 | Outpatient (AMB) | payer OTHER, SELFPAY ==
--- OUTSIDE RECORDS SUMMARY | 2023-09-08 05:30 | XMS_ITS ---
Author Organization [facility] Address [address] [place] [phone] Care Team Providers Care Quality Assurance Monitor Final Name Role Phone Jenny HAMILTON, Selene Primary Care Provider Unavail able Cory Chen Unavailable [phone] REASON FOR VISIT screening Problems Problem Type SNOMED Code ICD Code Onset Dates Problem Status W/U Status Risk Notes Problem Diverticular disease of colon (381761821) Diverticulosis of large intestine without perforation or abscess without bleeding (K57.30) Active confirmed Encounters Encounter Location Date Provider Diagnosis [facility] [place] [address] [place] [phone] 09/08/2023 Cory Chen Encounter for scre ening [...] * ELAINE RIZZO MDOB:[birth year] (64 yo M)Acc No.[id number]:09/08/2023 COLON WITH MAC Patient: ELAINE FARNSWORTH Provider: Delfin Chen MD :1960 A ge:62 Y S ex:Male Date:09/08/2023 Address:[address] [place] [address] Pcp:Selene Alvarado NP Subjective: * Chief Complaints: * 1 . Screening. * Medical History: Objective: * Vitals: Assessment: * Assessment: 1. E ncounter for screening colonoscopy - Z12.11 (Primary) 2 . C olon polyps - K63.5 3 . D iverticulosis of large intestine without perforation or abscess without bleeding - K57.30 4 . O ther hemorrhoids - K64.8 Plan: * Treatment: * Procedure Codes: 4 5385 LESION REMOVAL COLONOSCOPY, Modifiers: PT , [address]257 COLONOSCOPY AND BIOPSY, Modifiers: 59 , PT * * The named appointment provid er may or may not be the originator of this progress note, and it is not deemed complete until electronically signed by the appointment provider. Sign off status: Pending * Provider: Delfin Chen MD Date: 0 09/08/2023 Generated for Afua maher/Jorge Alberto/Miltonitting on: 0 11/26/2024 04:41 PM EDT
[2024-11-26 15:27] VITALS: BP 112/76; PULSE 82; O2SAT 98; BMI 27.7
--- NOTE | 2024-11-26 15:27 | A.OFFVIS_ITS ---
Vital Signs 3 11/26/24 15:27 Height 5 ft 10 in Weight 192 lb 14.472 oz BMI 27.7 BP 112/76 Blood Pressure Location Lt brachial Position Sitting Pulse 82 Pulse Source Pulse Oximeter Pulse Oximetry (%) 98 Oxygen Delivery Method Room Air Intake Visit Reasons: Pneumonia Senior Staff Psychologist Required: No Accompanied by: Self / Same As Patient Allergies No Known Allergies Allergy (Verified 11/26/24 15:30) HPI Comments Details: The patient is a 64-year-old gentleman former smoker who presents with an abnormal CT scan of the chest. Apparently the patient became part of the lung cancer screening program. He was fairly asymptomatic although he did have a cough intermittently. CT scan was done which was personally by me demonstrating consolidation in the right lower lobe in addition to significant treating budding and also some disease in the left lower lobe area. 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 He does have a lot of dust that he has cleans especially when he keeps the birds in his garage. Significant does the buildup. He usually cleans his without a mask. The patient had done significant cleaning prior to the last CT scan. 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 In the meantime he did follow-up with Urology in a CT scan of the bladder was requested. I did review the CT scan he just had today and compared to his previous CAT scan did he had beginning of May 2024. It actually demonstrated interval resolution of the consolidation he had in the right base leaving some areas of atelectasis. And some slight haziness. Therefore likely some partial treatment already happened and will go ahead and place him on some antibiotics to finish the rest of the residual disease state. The patient understands that the birds may carry silicosis and other burdens. Hypersensitivity panel was also been requested to make sure there is no evidence of any hypersensitivity disease although this is unlikely since it typically involves in the upper lung zones and his disease state was mainly in the lower lung zones. Some with smoking history he does have some emphysema on his CAT scan. Will request pulmonary function studies along with the blood work. The patient will complete the antibiotics and follow-up sometime in the fall where we will perform some pulmonary function studies. 11/26/2024 the patient is here for pulmonary follow-up visit. Overall he is doing better. He still has a cough though. At times productive. Mild in severity. He is not working closely with the chickens. He has somebody else change the bedding. The patient did have a repeat CAT scan demonstrating interval resolution of the airspace disease. His blood work is all negative for any hypersensitivity reactions. Although she is still trying to stay away from the chickens. In addition to that he did undergo pulmonary function studies that I personally reviewed with him. Appears to have a mild obstruction consistent mild COPD. He is agreeable to start Wixela. He will try for a month and see if it gives him relief. After that he can stop it or he can continue if he finds it is helpful. Will follow-up after his CAT scan in May. He has any issues prior to this he can always call for further recommendations. As far as vaccines the patient should get a pneumonia vaccine. I did give him the information about that. He should also get a flu shot. [facility] Medical History Emphysema lung Overweight (BMI 25.0-29.9) Chronic kidney disease, stage III (moderate) Vitamin D deficiency Meckel diverticulum Surgical History History of colonoscopy H/O fasciotomy H/O: knee surgery H/O adenoidectomy Hx of tonsillectomy History of appendectomy History of cholecystectomy Family History Mother Diabetes Mild dementia Father Esophageal cancer Pneumonitis Social History (Reviewed 11/26/24 @ 15:30 by Nimisha Lazar [facility] [address]) Housing: House Patient Tobacco Use Status: Former Tobacco user Tobacco use type: Cigarette Cigarette Packs Per Day: 0.5 Cigarettes Per Day: 10.0 Years Smoked: 45 years, 1ppd x 15yrs, approx 1/2 ppd x 30 yrs service: Yes Current occupational status: employed Cognitive needs: No Hearing needs: No Vision needs: No Review of Systems Const Denies chills, Denies fatigue, Denies fever(s), Denies headache(s), Denies malaise and Denies weakness Eyes Denies blurry vision, Denies change in vision, Denies irritation and Denies itchy eyes ENT Denies dysphagia, Denies dizziness, Denies otalgia, Denies headache(s), Denies nasal congestion, Denies neck pain, Denies odynophagia and Denies sore throat Card Denies chest pain, Denies rapid heart rate, Denies irregular heart rhythm, Denies palpitations and Denies dyspnea Resp Reports chest congestion, Reports cough, Denies dyspnea and Denies wheezing GI Denies abdominal pain, Denies bloating, Denies constipation, Denies dysphagia, Denies heartburn, Denies diarrhea, Denies nausea, Denies odynophagia and Denies vomiting Denies hematuria, Denies difficulty urinating, Denies dysuria, Denies urinary frequency and Denies urinary urgency Musc Denies back pain, Reports arthralgias (on and off, in the left hip and in both shoulders), Denies joint swelling, Denies muscle weakness and Denies neck pain Skin/Breast Denies lesions, Denies rash and Denies unusual bruising Neuro Denies dizziness, Denies headache(s), Denies paresthesias and Denies weakness Endo Denies fatigue and Denies palpitations Aller/Immun Denies itchy eyes and Denies wheezing Physical Exam Vital Signs: Last Vital Signs Pulse 82 11/26/24 15:27 BP 112/76 11/26/24 15:27 Pulse Ox 98 11/26/24 15:27 Oxygen Delivery Method Room Air 11/26/24 15:27 BMI result Body Mass Index 27.7 Const General: cooperative, healthy appearing, comfortable, no acute distress, well developed, alert and awake Orientation/consciousness: patient oriented x3 Limitations: no limitations HEENT Head: Yes normal to inspection, Yes normocephalic and Yes atraumatic Ears: hearing grossly normal bilaterally Eyes General: appearance normal, both eyes and all related structures Neck Neck: Yes normal visual inspection and Yes trachea midline Chest Chest palpation & inspection: normal inspection of the chest Resp Effort & Inspection: normal respiratory effort and able to speak in complete sentences Auscultation: clear to auscultation bilaterally Cardio Rate: regular rate Heart sounds: S1 normal heart sound present and S2 normal heart sound present GI Inspection: Yes normal to inspection Palpation (GI): Soft to palpation Skin General skin exam: no rashes or lesions noted Neuro General: patient oriented x3 Extrem General: Yes normal to inspection Psych Appearance: grossly normal and well kempt Mental Status: mental status grossly normal Results Reviewed Results Reviewed: Assessment & Plan Assessment & Plan (1) Emphysema lung: Code(s): J43.9 - Emphysema, unspecified Category: Medical Qualifiers: Emphysema type: centrilobular Qualified Code(s): J43.2 - Centrilobular emphysema (2) Lung consolidation: Comment: better Code(s): J18.1 - Lobar pneumonia, unspecified organism Category: Medical Plan start Wixela LDCT Avoiding exposure to birds/chickens F/U 6-8 months Medications: New 2 fluticasone propion-salmeterol 250-50 mcg/dose (Wixela Inhub) 1 inh inhalation Q12H 60 ea 11RF 30 days Coding Level of Care Code Est Pt Level 4 (57775) Complex EM visit Add On G2211 Diagnoses Centrilobular emphysema J43.2 Emphysema type: centrilobular Lung consolidation J18.1 Time Spent (min) 17
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
== END 2024-11-26 15:49 | disposition home or self-care (01) ==
LOC: HO.HPS 15:26
PROVIDERS: PCP Internal Medicine; Visit Provider Hospitalist
DX: J43.2 Centrilobular emphysema (principal); J18.1 Lobar pneumonia, unspecified organism
CPT/HCPCS: 99214

== ENCOUNTER 2025-01-13 09:18 | Outpatient (REF) | payer OTHER, SELFPAY ==
[2025-01-13 10:35] LABS: Prostate Specific Antigen 4.05 ng/mL (<0.05-4.0)
== END 2025-01-13 09:19 | disposition home or self-care (01) ==
LOC: HO.LAB 09:18
PROVIDERS: PCP Internal Medicine; Visit Provider Nurse Practitioner Family
DX: R97.20 Elevated prostate specific antigen [PSA] (principal); Z12.5 Encounter for screening for malignant neoplasm of prostate
CPT/HCPCS: 36415; 84153

== ENCOUNTER 2025-01-15 12:01 | Outpatient (AMB) | payer OTHER, SELFPAY ==
--- OUTSIDE RECORDS SUMMARY | 2023-09-08 04:30 | XMS_ITS ---
Author Organization [facility] Address [address] [place] [id number] Care Team Providers Care Cat Dog Or Other Pet Groomer Name Role Phone Jenny HAMILTON, Selene Primary Care Provider Unavail able Cory Chen Unavailable [phone] REASON FOR VISIT screening Problems Problem Type SNOMED Code ICD Code Onset Dates Problem Status W/U Status Risk Notes Problem Diverticular disease of colon (276347335) Diverticulosis of large intestine without perforation or abscess without bleeding (K57.30) Active confirmed Encounters Encounter Location Date Provider Diagnosis [facility] [place] [address] [place] [id number] 09/08/2023 Cory Chen Encounter for scre ening colonoscopy Z12.11 ; Colon polyps K63.5 ; Diverticulosis of large intestine without perforation or abscess without bleeding K57.30 and Other hemorrhoids K64.8 Assessments Encounter Date Diagnosis (ICD Code) Assessment Notes Treatment Notes Treatment Clinical Notes 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 09/08/2023 Encounter for screening colonoscopy (ICD-10 - Z12.11) 09/08/2023 Colon polyps (ICD-10 - K63.5) 09/08/2023 Diverticulosis of large intestine without perforation or abscess without bleeding (ICD-10 - K57.30) 09/08/2023 Other hemorrhoids (ICD-10 - K64.8) Plan Of Treatment No Information Progress Notes * ELAINE RIZZO MDOB:[birth year] (64 yo M)Acc No.[id number]:09/08/2023 COLON WITH MAC Patient: ELAINE FARNSWORTH Provider: Delfin Chen MD :1960 A ge:62 Y S ex:Male Date:09/08/2023 Address:[address] [place] [address] Pcp:Selene Alvarado NP Subjective: * Chief Complaints: * S creening Assessment: * Assessment: 1. E ncounter for screening colonoscopy - Z12.11 (Primary) 2 . C olon polyps - K63.5 3 . D iverticulosis of large intestine without perforation or abscess without bleeding - K57.30 4 . O ther hemorrhoids - K64.8 Plan: * Procedure Codes: 4 5385 LESION REMOVAL COLONOSCOPY, Modifiers: [place] [address]494 COLONOSCOPY AND BIOPSY, Modifiers: 59 , PT Billing Information: * Procedure Codes: 63891 LESION REMOVAL COLONOSCOPY. Modifiers: [place] 43856 COLONOSCOPY AND BIOPSY. Modifiers: 59, PT * The named appointment provid er may or may not be the originator of this progress note, and it is not deemed complete until electronically signed by the appointment provider. Sign off status: Pending * Provider: Delfin Chen MD Date: 0 09/08/2023 Generated for Afua maher/Jorge Alberto/Samanthasmitting on: 1 03/17/2024 11:10 PM EST
--- NOTE | 2025-01-15 12:02 | MHC.OFFVIS ---
Intake Visit Reasons: 6m/PSA Intake Note: Patient is present for 6M/PSA Urology Medication:NONE Antibiotic Allergy:NONE Blood Thinner:NONE Resource Agent Required: No Allergies No Known Allergies Allergy (Verified 01/15/25 15:11) Medication List - Last Reconciled 01/15/25 by CELESTE Gonzalez fluticasone propion-salmeterol 250-50 mcg/dose (Wixela Inhub) 1 inh inhalation Q12H 30 days HPI Comments Details: Uriel is a very pleasant 64-year-old male patient of Dr. Sexton. He has a past medical history of overweight, chronic kidney disease stage 3, vitamin-D deficiency, and Meckel diverticulum. He is being followed up on today via video telehealth for his history of microscopic hematuria in the setting of nicotine dependence. In discussion with the patient today he reports to be doing and feeling well. He denies having had any bothersome urinary issues or concerns since his last office visit here approximately 6 months ago. Most recent PSA results reviewed with the patient today as noted and trended below: 02/18 3.7, 02/19 3.6, 01/21 4.1 We did discuss slightly elevated PSA. We discussed potential causes of this finding as well as further treatment options and risks and benefits of these treatment options. Patient with a previous workup for microscopic hematuria to include in office cystoscopy 06/[address] Raghav Demarco with Cystoscopy findings: prostatic urethra bilobar enlargement, bulbous urethra WNL, no suspicious bladder lesions visualized. CT urogram 06/21 no urolithiasis nor evidence of renal neoplasm. Pelvic contents are unremarkable. The urinary bladder is within normal limits. He does have a previous history of nicotine dependence for 45 years however quit October 2022. Previous urine cytology results 04/23 Negative for high-grade urothelial carcinoma. When asked he denies any urological issues. He denies urinary urgency, urinary frequency, incontinence, nocturia, hematuria, dysuria, foul smelling urine, changes to urinary stream, flank pain, fever, and or chills. He denies any known family history of prostate cancer. He is happy with his current voiding parameters. He otherwise offers no other issues or concerns at this time. [facility] Medical History Emphysema lung Overweight (BMI 25.0-29.9) Chronic kidney disease, stage III (moderate) Vitamin D deficiency Meckel diverticulum Surgical History History of colonoscopy H/O fasciotomy H/O: knee surgery H/O adenoidectomy Hx of tonsillectomy History of appendectomy History of cholecystectomy Family History Mother Diabetes Mild dementia Father Esophageal cancer Pneumonitis Social History Housing: House Patient Tobacco Use Status: Former Tobacco user Tobacco use type: Cigarette Cigarette Packs Per Day: 0.5 Cigarettes Per Day: 10.0 Years Smoked: 45 years, 1ppd x 15yrs, approx 1/2 ppd x 30 yrs service: Yes Current occupational status: employed Cognitive needs: No Hearing needs: No Vision needs: No Review of Systems Const All systems reviewed & are unremarkable except as noted in HPI and below Physical Exam Const General: cooperative, healthy appearing, comfortable, no acute distress, well developed, alert and awake Orientation/consciousness: patient oriented x3 Resp Effort & Inspection: normal respiratory effort and able to speak in complete sentences Neuro General: patient oriented x3 Psych Appearance: grossly normal and well kempt Speech and movement: Clear speech present Attitude: cooperative Thought content: Normal thought content present Insight: Fair insight present (Psych) Judgement: Fair judgement present (Psych) Telehealth Telehealth Telehealth Platform: Telephone Location of provider rendering services: practice address Location of patient: address on file Telehealth method: video Patient verbally consented to treatment: Yes Patient verbally consented to billing insurance company: Yes Patient informed of any privacy concerns related to visit: Yes Minutes spent on Phone/Video with Pt.: 15 Assessment & Plan Assessment & Plan (1) Elevated PSA: Code(s): R97.20 - Elevated prostate specific antigen [PSA] Category: Medical (2) Abnormal urine cytology: Code(s): R82.89 - Other abnormal findings on cytological and histological examination of urine Category: Medical (3) Microscopic hematuria: Code(s): R31.29 - Other microscopic hematuria Category: Medical Plan Recent PSA results reviewed the patient today; as noted above. We did discussed potential causes of slightly elevated PSA as well as further treatment options and risks and benefits of these treatment options. He currently denies any bothersome urinary issues or concerns. He reports be happy with current voiding parameters. Will obtain retroperitoneal ultrasound for further assessment evaluation. Will obtain redraw of PSA with no sex the night before, no caffeine morning of, and no heavy lifting 1-2 days prior. All questions were answered. Follow-up in 1-3 months with imaging, PSA, and PVR; or sooner with any issues, concerns, and or questions. Orders: Orders US retroperitoneal comp Today R97.20 - Elevated prostate specific antigen [PSA] Urine Cytology Today R82.89 - Other abnormal findings on cytological and histological examination of urine PSA,Total (Free>4and<10) Today R97.20 - Elevated prostate specific antigen [PSA] Patient Instructions: The patient had an opportunity to ask questions regarding the treatment plan. All questions were answered. Physical exam, labs, and imaging were discussed and reviewed in detail. As well as risks, benefits, and discussion of treatment choices. No major barriers to understanding were identified. The patient expressed understanding and agreement with the above treatment plan. The patient was made aware they should contact our office by phone for worsening of their current condition, the appearance of new symptoms, or with any questions or concerns. Compliance is encouraged with any medications and follow up testing that is ordered. It is a privilege to be allowed the opportunity to participate in? your urological care.? Again, if you have any questions or concerns If you have any questions or concerns please do not hesitate to contact me. The office is [phone]. This note is constructed using voice recognition software. While every effort has been made to ensure accuracy weigh and charge worker errors may have been included. Yours sincerely, CELESTE Gonzalez Coding Level of Care Code Tele Est Pt Level 3 (31897) Diagnoses Elevated PSA R97.20 Abnormal urine cytology R82.89 Microscopic hematuria R31.29
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
== END 2025-01-15 12:56 | disposition home or self-care (01) ==
LOC: HO.HUSH 12:01
PROVIDERS: PCP Internal Medicine; Visit Provider Nurse Practitioner Family
DX: R97.20 Elevated prostate specific antigen [PSA] (principal); R82.89 Other abnormal findings on cytological and histological examination of urine; R31.29 Other microscopic hematuria
CPT/HCPCS: 99213

== ENCOUNTER 2025-01-31 14:47 | Outpatient (AMB) | payer OTHER, SELFPAY ==
--- NOTE | 2025-01-31 14:50 | A.OFFPC_ITS ---
Vital Signs 01/31/25 14:51 Height 5 ft 10 in Weight 196 lb BMI 28.1 BP 136/84 Blood Pressure Location Lt brachial Position Sitting Pulse 92 Pulse Source Pulse Oximeter Pulse Oximetry (%) 99 Oxygen Delivery Method Room Air Intake Visit Reasons: Annual Exam Magnetic Prospecting Operator Required: No Accompanied by: Self / Same As Patient Allergies No Known Allergies Allergy (Verified 01/31/25 15:29) Medication List - Last Reconciled 01/31/25 by Houston Sexton MD fluticasone propion-salmeterol 250-50 mcg/dose (Wixela Inhub) 1 inh inhalation Q12H 30 days Tobacco use date assessed: 01/31/25 Dental Screening Dental Screen Date: 01/31/25 Did you have a dental visit in the last 12 months?: Yes Did you have a dental problem in the last 6 months where you did not have access to dental care?: No Was dental information given to patient?: Patient has dentist HPI Annual Exam HPI Details - The patient is a 64-year-old male pres enting for an annual physical examination - He is currently prescribed Wixela, and for the past month, he has experienced hoarseness and a sensation in his throat. He denies any sore throat or any dysphagia or odynophagia - He denies ever needing a rescue inhale r and was not on an inhaler prior to Wixela. Patient states that he currently feels okay otherwise He denies any headaches or dizziness Denies any chest pains, no SOB No nausea/vomiting, no abdominal pain No change in bowel habits noted He denies any acute urinary symptoms - He has a history of a CT lung screenin g in May 2024 - His last colonoscopy in 2023 revealed (+) tubular adenomas, and his next screening is due in 2028. - He is being followed by urology for an elevated PSA level noted last month (4.05) and has an ultrasound scheduled. ON LICENSE OF [facility] Medical History (Updated 02/02/25 @ 04:53 by Houston Sexton MD) COPD (chronic obstructive pulmonary disease) Emphysema lung Overweight (BMI 25.0-29.9) Chronic kidney disease, stage III (moderate) Vitamin D deficiency Meckel diverticulum Surgical History History of colonoscopy H/O fasciotomy H/O: knee surgery H/O adenoidectomy Hx of tonsillectomy History of appendectomy History of cholecystectomy Family History Mother Diabetes Mild dementia Father Esophageal cancer Pneumonitis Social History Housing: House Patient Tobacco Use Status: Former Tobacco user Tobacco use type: Cigarette Cigarette Packs Per Day: 0.5 Cigarettes Per Day: 10.0 Years Smoked: 45 years, 1ppd x 15yrs, approx 1/2 ppd x 30 yrs e-Cigarette/Vaping Use: Never Used Second Hand Smoke Exposure: No service: Yes Current occupational status: employed Cognitive needs: No Hearing needs: No Vision needs: No Questionnaire PHQ-9 Over the last 2 weeks, how often have you been bothered by any of the following problems? 1. Little interest or pleasure in doing things: not at all 2. Feeling down, depressed, or hopeless: not at all 3. Trouble falling or staying asleep, or sleeping too much: not at all 4. Feeling tired or having little energy: not at all 5. Poor appetite or overeating: not at all 6. Feeling bad about yourself - or that you are a failure or have let yourself or your family down: not at all 7. Trouble concentrating on things, such as reading the newspaper or watching television: not at all 8. Moving or speaking so slowly that other people could have noticed. Or the opposite - being so fidgety or restless that you have been moving around a lot more than usual: not at all 9. Thoughts that you would be better off or of hurting yourself in some way: not at all Total score: 0 Depression Screening Interpretation: Negative Depression Screening Done: Yes 74356 - PHQ-9 Billing: Yes Source: Developed by Drs. Cory Gómez, Jessica Putnam, Dieter Alfonso and colleagues, with an educational raya from [employer]. Thrive Questionnaire Date Thrive assessed: 01/31/25 I am a: Patient What is your living situation today?: I have a steady place to live Within the past 12 months, did the food you bought not last and you didn't have the money to get more?: Never true Within the past 12 months, did you worry whether your food would run out before you got money to buy more?: Never true Do you have trouble paying for medicines?: No Do you have trouble getting transportation to medical appointments?: No Do you have trouble paying your heating and electricity bill?: No Do you have trouble taking care of your child, family member or friend?: No Do you have trouble with day-to-day activities such as bathing, preparing meals, shopping, managing finances, etc.?: No Are you currently unemployed and looking for a job?: No Are you interested in more education?: No Please select the resources that you would like help with: None Currently or been in a relationship where the following occur: No concerns reported THRIVE Score: 0 AUDIT C Alcohol Use Questionnaire (AUDIT-C) 1. How often do you have a drink containing alcohol?: Never 3. How often do you have six or more drinks on one occasion?: Never Total Score: 0 Score Reviewed/Action Taken: Yes SABINA-7 AMB Questionnaire SABINA-7 Date SABINA - 7 assessed: 01/31/25 Feeling nervous, anxious, or on edge: 0 = Not at all Not being able to stop or control worryin = Not at all Worrying too much about different things: 0 = Not at all Trouble relaxin = Not at all Being so restless that it is hard to sit still: 0 = Not at all Becoming easily annoyed or irritable: 0 = Not at all Feeling afraid as if something awful might happen: 0 = Not at all Total SABINA-7 score (0-4 normal; 5-9 mild; 10-14 moderate; 15-21 severe): 0 Source: Developed by Drs. Cory Gómez, Jessica Putnam, Dieter Alfonso and colleagues, with an educational raya from [employer]. Review of Systems Const Denies chills, Denies fatigue, Denies fever(s), Denies headache(s), Denies malaise and Denies weakness Eyes Denies blurry vision, Denies change in vision, Denies irritation and Denies itchy eyes ENT Denies dysphagia, Denies dizziness, Denies otalgia, Denies headache(s), Reports hoarseness, Denies nasal congestion, Denies neck pain, Denies odynophagia and Denies sore throat Card Denies rapid heart rate, Denies irregular heart rhythm, Denies palpitations and Denies dyspnea Resp Denies chest congestion, Denies cough, Denies dyspnea and Denies wheezing GI Denies abdominal pain, Denies bloating, Denies constipation, Denies dysphagia, Denies heartburn, Denies diarrhea, Denies nausea, Denies odynophagia and Denies vomiting Denies hematuria, Denies difficulty urinating, Denies dysuria, Denies urinary frequency and Denies urinary urgency Musc Denies back pain, Denies arthralgias, Denies joint swelling, Denies muscle weakness and Denies neck pain Skin/Breast Denies change in pigmentation, Denies lesions, Denies rash and Denies unusual bruising Neuro Denies dizziness, Denies headache(s), Denies paresthesias and Denies weakness Endo Denies fatigue and Denies palpitations Aller/Immun Denies itchy eyes and Denies wheezing Physical exam (Primary Care) Vital Signs: Last Vital Signs Pulse 92 01/31/25 14:51 BP 136/84 01/31/25 14:51 Pulse Ox 99 01/31/25 14:51 Oxygen Delivery Method Room Air 01/31/25 14:51 BMI result Body Mass Index 28.1 Tobacco/Smoking Status: Tobacco use Status Tobacco use date assessed 01/31/25 01/31/25 14:57 Patient Tobacco Use Status Former Tobacco user 01/31/25 14:57 Tobacco use type Cigarette 01/31/25 14:57 e-Cigarette/Vaping Use Never Used 01/31/25 14:57 PHQ-9: PHQ-9 Score PHQ-9: Total score 0 01/31/25 15:39 Depression Screening Interpretation: Negative Thrive Assessment: Date of Thrive Assessment Date Thrive assessed 01/31/25 01/31/25 14:57 Currently or been in a relationship where the following occur: No concerns reported Const General: no acute distress, alert and awake Orientation/consciousness: patient oriented x3 HENMT Head: Yes normocephalic and Yes atraumatic Ears: external ears normal, TM's normal bilaterally and EAC's normal General nose exam: No nasal discharge present Face and sinus: Yes normal facial exam and Yes sinuses nontender Teeth and gingiva: dentition normal Throat: Yes posterior oropharynx normal and Yes tonsils normal (no TP congestion) Eyes Eyelids: Yes eyelids normal Conjunctivae: conjunctivae normal Pupils: Equal, round and reactive pupils present EOM: EOMs intact bilaterally Neck Neck: Yes no lymphadenopathy and Yes supple Thyroid: Thyroid normal Resp Auscultation: clear to auscultation bilaterally, no rales and no wheezes Cardio Rate: regular rate Rhythm: regular rhythm Heart sounds: no murmurs GI Palpation (GI): Soft to palpation, nontender and No hepatosplenomegaly present Auscultation: normal bowel sounds General: Yes no CVA tenderness Back/Spine/Pelvis Back: no CVA tenderness Thoracic/Lumbar Spine: thoracic and lumbar spine normal to inspection Skin Lesions: no lesions Rashes: no rashes Neuro General: patient oriented x3, moves all extremities, no focal motor deficits and CN's II-XI intact bilaterally Cranial nerves: Yes Equal, round and reactive pupils present Cognition (Neuro): normal cognition Gait exam (Neuro): Normal gait present Extrem General: Yes no clubbing, cyanosis or edema Coding Level of Care Code Est Pt Prev Care 40-64y(51861) Diagnoses Annual physical exam Z00.00 Emphysema lung J43.9 Hoarseness R49.0 Stage 3a chronic kidney disease N18.31 Chronic kidney disease stage 3 subtype: stage 3a (GFR 45-59) Vitamin D deficiency E55.9 Elevated PSA R97.20 Ex-smoker Z87.891 Overweight (BMI 25.0-29.9) E66.3 Additional Codes PHQ-9 - 32828 - PHQ-9 Billing: Yes ([id number]) Assessment & Plan Assessment & Plan (1) Annual physical exam: Code(s): Z00.00 - Encounter for general adult medical examination without abnormal findings Category: Medical Plan: Check labs [place] to complete his annual exam today His last screening colonoscopy done in 2023 revealed (+) tubular adenomas, and his next screening is recommended in 5 years (2028) (2) Emphysema lung: Code(s): J43.9 - Emphysema, unspecified Category: Medical Plan: Patient's last low dose chest CT done in May 2024 revealed findings of mild emphysema He also appeared to have pneumonia at the time and this has been addressed and treated since by pulmonary PFT done in July 2024 revealed (+) obstructive ventilatory defect consistent with mild COPD, with no significant response to bronchodilators noted. Normal lung volumes were noted as well as a mild diffusion impairment secondary to like ly COPD He was started on Wixela Inhub 250-50 mcg 1 inhalation Q 12 hours by pulmonary a couple of months ago - this will be switched over to Spiriva Respimat today due to his complaint of frequent hoarseness and sensation of discomfort' in his throat ever since he was started on Wixela He has also been advised by pulmonary to continue avoiding exposure to birds/chickens as much as possible and to get his flu and pneumonia vaccines as soon as he can Follow up with pulmonary as scheduled (3) Hoarseness: Code(s): R49.0 - Dysphonia Category: Medical Plan: Patient reports frequent hoarseness and sensation of discomfort in his throat ever since he was started on Wixela Inhub by pulmonary a couple of months ago Discussed that Wixela is a powdered-based steroid inhaler and hoarseness and change in voice are a common side effect of most steroid inhalers Patient adds that he does not feel any different since he was started on Wixela by pulmonary so he is not sure if the inhaler is helping at all Will try switching him from Wixela Inhub to Spiriva Respimat 1.25 mcg 2 inhalations QD to help address his hoarseness and throat symptoms (4) Chronic kidney disease, stage III (moderate): Code(s): N18.30 - Chronic kidney disease, stage 3 unspecified Category: Medical Qualifiers: Chronic kidney disease stage 3 subtype: stage 3a (GFR 45-59) Qualified Code(s): N18.31 - Chronic kidney disease, stage 3a Plan: His previous labs revealed a slightly elevated serum creatinine level and slightly diminished GFR - numbers that are consistent with stage 3a CKD Patient denies taking any Ibuprofen or NSAIDs for his joint pains - states that he is not taking any meds at all other than his Vitamin D supplement and Wixela inhaler that was started by pulmonary recently We will have him recheck his labs and renal function [place] for follow up Will also consider sending him for renal US for further evaluation at some point, especially if his renal dysfunction progresses He will likely also need to see nephrology for further evaluation/management at some point in the future (5) Vitamin D deficiency: Code(s): E55.9 - Vitamin D deficiency, unspecified Category: Medical Plan: His Vitamin D level was still low when it was last checked in January 2024 - will recheck his Vitamin D level for follow up Continue OTC Vitamin D3 2000 units QD (6) Elevated PSA: Code(s): R97.20 - Elevated prostate specific antigen [PSA] Category: Medical Plan: His PSA level was at 3.74 ng/ml last year and has gone up to 4.05 a few weeks ago Follow up with urology as scheduled (7) Ex-smoker: Code(s): Z87.891 - Personal history of nicotine dependence Category: Social Hx Plan: Patient quit smoking completely over a year ago in December 2023 Low-dose chest CT last done in 05/2024 came out negative Will continue with routine lung cancer screening as scheduled (8) Overweight (BMI 25.0-29.9): Code(s): E66.3 - Overweight Category: Medical Plan: Reinforced diet/exercise as tolerated/lose weight Plan To return in 1 year for his next annual physical examination Orders: Orders Complete Blood Count Auto Diff 01/31/25 D64.9 - Anemia, unspecified, Z00.00 - Encounter for general adult medical examination without abnormal findings UA CC w/rflx Micro + Cult 01/31/25 R30.0 - Dysuria, Z00.00 - Encounter for general adult medical examination without abnormal findings Lipid Panel 01/31/25 E78.00 - Pure hypercholesterolemia, unspecified, Z00.00 - Encounter for general adult medical examination without abnormal findings Comprehensive [place]. Panel Fast 01/31/25 E78.00 - Pure hypercholesterolemia, unspecified, Z00.00 - Encounter for general adult medical examination without abnormal findings TSH reflex Free T4 01/31/25 E78.00 - Pure hypercholesterolemia, unspecified, Z00.00 - Encounter for general adult medical examination without abnormal findings Vitamin D 25-OH Total 01/31/25 E55.9 - Vitamin D deficiency, unspecified, Z00.00 - Encounter for general adult medical examination without abnormal findings Medications: New Spiriva Respimat 1.25 mcg/actuation (tiotropium bromide) 2 puffs inhalation DAILY 4 grams 5RF 30 days NS J44.9 - Chronic obstructive pulmonary disease, unspecified Discontinued fluticasone propion-salmeterol 250-50 mcg/dose (Wixela Inhub) Discontinued Reason: Doctor's Order 1 inh inhalation Q12H 30 days 60 ea 11RF
[2025-01-31 14:51] VITALS: BP 136/84; PULSE 92; O2SAT 99; BMI 28.1
== END 2025-01-31 15:44 | disposition home or self-care (01) ==
LOC: HO.HMCH 14:48
PROVIDERS: PCP Internal Medicine; Visit Provider Internal Medicine
DX: Z00.00 Encounter for general adult medical examination without abnormal findings (principal); J43.9 Emphysema, unspecified; R49.0 Dysphonia; N18.31 Chronic kidney disease, stage 3a; E55.9 Vitamin D deficiency, unspecified; R97.20 Elevated prostate specific antigen [PSA]; Z87.891 Personal history of nicotine dependence; E66.3 Overweight

== ENCOUNTER → 2025-01-31 14:47 | Outpatient (BNVA) | payer OTHER, SELFPAY | PROVIDERS: PCP Nurse Practitioner Family; Visit Provider Internal Medicine | DX: Z00.00 Encounter for general adult medical examination without abnormal findings (principal); J43.9 Emphysema, unspecified; R49.0 Dysphonia; N18.31 Chronic kidney disease, stage 3a; E55.9 Vitamin D deficiency, unspecified; R97.20 Elevated prostate specific antigen [PSA]; E66.3 Overweight; Z87.891 Personal history of nicotine dependence; Z68.28 Body mass index [BMI] 28.0-28.9, adult | CPT/HCPCS: 96127 ==

== ENCOUNTER 2025-02-10 07:26 | Outpatient (REF) | payer OTHER, SELFPAY ==
--- OUTSIDE RECORDS SUMMARY | 2023-09-08 04:30 | XMS_ITS ---
Author Organization [facility] Address [address] [place] [phone] Care Team Providers Care Business Development Director Name Role Phone Jenny HAMILTON, Selene Primary Care Provider Unavail able Cory Chen Unavailable [phone] REASON FOR VISIT screening Problems Problem Type SNOMED Code ICD Code Onset Dates Problem Status W/U Status Risk Notes Problem Diverticular disease of colon (372134675) Diverticulosis of large intestine without perforation or abscess without bleeding (K57.30) Active confirmed Encounters Encounter Location Date Provider Diagnosis [facility] Outpatient [address] [place] [id number] 09/08/2023 Cory Chen Encounter for scre ening [...] * ELAINE RIZZO MDOB:[birth year] (64 yo M)Acc No.[id number]:09/08/2023 COLON WITH MAC Patient: ELAINE FARNSWORTH Provider: Delfin Chen MD :1960 A ge:62 Y S ex:Male Date:09/08/2023 Address:[address] [place] [address] Pcp:Selene Alvarado NP Subjective: * Chief Complaints: * S creening Assessment: * Assessment: 1. E ncounter for screening colonoscopy - Z12.11 (Primary) 2 . C olon polyps - K63.5 3 . D iverticulosis of large intestine without perforation or abscess without bleeding - K57.30 4 . O ther hemorrhoids - K64.8 Plan: * Procedure Codes: 4 5385 LESION REMOVAL COLONOSCOPY, [place]: [place] [address] COLONOSCOPY AND BIOPSY, Modifiers: 59 , PT Billing Information: * Procedure Codes: 29837 LESION REMOVAL COLONOSCOPY. Modifiers: [place] 727[address] COLONOSCOPY AND BIOPSY. Modifiers: 59, PT * The named appointment provid er may or may not be the originator of this progress note, and it is not deemed complete until electronically signed by the appointment provider. Sign off status: Pending * Provider: Delfin Chen MD Date: 0 09/08/2023 Generated for Afua maher/Jorge Alberto/Samanthasmitting on: 1 04/13/2024 07:28 AM EST
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
[2025-02-10 07:38] LABS: MANUAL DIFF FLAG NO
[2025-02-10 07:57] LABS: Hematocrit 46.7 % (42.0-52.0); Hemoglobin 15.5 g/dl (14.0-18.0); Imm Gran Abs Auto 0.02 X10*3/uL (0.00-0.03); Imm Gran Pct Auto 0.3 % (0.0-0.4); Lymphocytes Absolute Auto 1.9 X10*3/uL (1.2-4.9); Mean Corpuscular HGB Conc 33.2 g/dl (31.0-36.0); Mean Corpuscular Hemoglobin 28.8 pg (27.0-33.0); Mean Corpuscular Volume 86.6 fL (80.0-98.0); NRBC Abs Auto 0.000 X10*3/uL (0.0-0.012); NRBC Pct Auto 0.0 /100WBC (0.0-0.2); Platelet Count 222 X10*3/uL (160-400); Red Blood Count 5.39 X10*6/uL (4.60-5.80); White Blood Count 6.7 X10*3/uL (4.8-10.8)
[2025-02-10 08:25] LABS: Alanine Aminotransferase 18 U/L (0-40); Albumin Level 4.7 g/dL (3.5-5.0); Alkaline Phosphatase 56 U/L (39-117); Anion Gap 11 (12-20); Aspartate Amino Transferase 22 U/L (5-37); Blood Urea Nitrogen 26 mg/dL (9-16); Calcium 9.5 mg/dL (8.4-10.2); Carbon Dioxide 27 mmol/L (22-29); Chloride 107 mmol/L (96-108); Cholesterol 149 mg/dL (<200); Estimated Glomerular Filt Rate 45; HDL Cholesterol 48 mg/dL (>40); Potassium 4.2 mmol/L (3.3-5.1); Sodium 141 mmol/L (135-145); Total Protein 7.1 g/dL (6.5-8.0); Triglycerides 67 mg/dL (<150)
[2025-02-10 11:15] LABS: Appearance Urine Cloudy; Glucose Urine UA Negative (Negative); PH 5.5 (5.0-9.0); Specific Gravity - Urine 1.015 (1.005-1.025); UMIC TRIGGER UACC YES
== END 2025-02-10 07:27 | disposition home or self-care (01) ==
LOC: HO.LAB 07:26
PROVIDERS: PCP Internal Medicine; Visit Provider Internal Medicine
DX: Z00.00 Encounter for general adult medical examination without abnormal findings (principal); E78.00 Pure hypercholesterolemia, unspecified; E55.9 Vitamin D deficiency, unspecified; D64.9 Anemia, unspecified; R30.0 Dysuria
CPT/HCPCS: 36415; 80053; 80061; 81001; 81003; 82306; 84443; 85025